=== PATIENT | female | born 1945 ===

== ENCOUNTER 2022-07-05 08:39 | Inpatient (IN) | payer MEDICARE ==
[~2022-07-05] VITALS: Ht 170.2 cm; Wt 109.3 kg
[2022-07-05 11:30] VITALS: BP 185/83
[2022-07-05] MEDS: ONDANSETRON 4 MG/2 ML (SDV) Z0FRAN IVP PRN ×3 (11:46→22:18)
--- NOTE | 2022-07-05 11:56 | History & Physical-Hospitalist ---
History of Present Illness HPI/Chief Complaint Patient is a 76-year-old female with past medical history of hypertension and partial Colectomy who presented to outside emergency department due to abdominal pain. She states her symptoms started about a week ago but got worse over the past couple of days. She complains of nausea and vomiting. She complains of pain throughout her entire abdomen but was worse in transfer in the lower abdomen. CT was done at outside facility which showed dilated bowel concerning for bowel obstruction. An NG tube was placed and there and she was transferred here. Source: patient Date Seen 07/05/22 Time Seen by a Provider: 11:00 Attending Physician PCP Admitting Physician: Laurie Wilcox MD Attending Physician: Laurie Wilcox MD Referring Physician Date of Admission Jul 05, 2022 at 11:16 Home Medications & Allergies Home Medications Reviewed patient Home Medication Reconciliation performed by pharmacy medication reconciliations energy and conservation technician and/or nursing. Patients Allergies have been reviewed. Allergies Allergies Coded Allergies No Known Drug Allergies (Unverified07/05/22) Past Cwgzeyz-Hokuyj-Ufpbvb Hx Patient Social History Tobacco Use?: No Use of E-Cig and/or Vaping dev: No Substance use?: No Alcohol Use?: No Pt feels they are or have been: No Current Status Advance Directives: No Communicates: Verbally Primary Language: Colombian Preferred Spoken Language: Colombian Is interpretation needed?: No Implanted or Applied Medical D: None Past Medical History Surgeries: Abdominal Hypertension Family Medical History Reviewed Nursing Family Hx Review of Systems Constitutional: see HPI Physical Exam Physical Exam Vital Signs Vital Signs - First Documented 07/05/22 11:30 Temp 36.4 Pulse 72 Resp 20 B/P (MAP) 185/83 (117) Pulse Ox 95 O2 Delivery Room Air Capillary Refill : Height, Weight, BMI Height: '" Weight: lbs. oz. kg; 35.29 BMI Method: General Appearance: No Apparent Distress, WD/WN, Obese HEENT: Other (NGT in place) Respiratory: Lungs Clear, No Accessory Muscle Use, No Respiratory Distress Cardiovascular: Regular Rate, Rhythm, No Murmur Gastrointestinal: Soft, Abnormal Bowel Sounds (quiet), Tenderness (mild and diffuse) Extremity: No Calf Tenderness, No Pedal Edema Neurologic/Psychiatric: Alert, Oriented x3, Normal Mood/Affect Results Results/Procedures Labs Patient resulted labs reviewed. Imaging: Reviewed Imaging Report Assessment/Plan Admission Diagnosis SBO Admission Status: Inpatient Order (span 2 midnights) Reason for Inpatient Admission: see below Assessment and Plan SBO Outside hospital shows SBO on CT with transition point NGT in place Fentanyl for pain Zofran for nausea Surgery consulted HTN BP elevated but in pain from transport IV metoprolol added to replace her oral metoprolol at home Telemetry added Obesity, BMI 35 On phentermine at home per report DVT ppx: Lovenox Diagnosis/Problems Diagnosis/Problems (1) Essential (primary) hypertension (2) Obesity (3) Small bowel obstruction LAURIE WILCOX MD Jul 05, 2022 11:56
--- NOTE | 2022-07-05 11:58 | Consultation - Surgery ---
RACHNA GUZMAN 07/05/22 1158: History of Present Illness History of Present Illness Patient Consulted On(ann/time) 07/05/22 11:48 Date Seen by Provider: Jul 05, 2022 Time Seen by Provider: 11:24 Reason for Visit: Small Bowel Obstruction History of Present Illness Consulted requested by Dr. Wilcox 76yo F with h/o exploratory lap with R colon resection and cholelithiasis was admitted for SBO after presenting to the ED with c/o nausea, decreased appetite, and diffuse abd pain that started 2 days ago. Pt also reports associated "low grade fevers" of 99 in ED and chills that started around this time. Pt states that on 07/03, she started to experience 9/10, constant, epigastric pain and nausea. Pt states that yesterday evening the pain started to become more diffuse. Pt reports that last night she started to experience a "fluttering" heart beat that prompted her to come to the ED. ED performed a CT w/IV contrast and findings were suspicious for SBO. NGT was placed in ED and pt was transferred to [facility]. Pt states that pain is similar to when her bowel was "strangulated" and required resection. Pt also notes that she was recently di agnosed with cholelithiasis and had an abd US and bloodwork done on 06/[address] Castillo. Pt's last BM was either Saturday or Saturday and states that it was small and nonbloody. Pt states that she has not had a BM or passed flatus since Saturday or Saturday. In room, pt is resting in bed with NGT in place. Pt is still experiencing nausea but denies any vomiting. Pt does retch during encounter prior to NGT being hooked to suction. Pt states that her abd pain has decreased since onset and states that it is now just "uncomfortable". Pt notes exacerbation of pain with ambulation. Pt denies vomiting, CP, SOB, current fluttering heartbeat, dysruia, hematuria, or bloating. Allergies and Home Medications Allergies Coded Allergies: No Known Drug Allergies (Unverified , 07/05/22) Patient Home Medication List Home Medication List Reviewed: Yes Acetylcarnitine HCl/Alip Acid (Acetyl k-Oqoyxselo-Cxmqrp Acid) 400 Mg-200 Mg Capsule, 1 EACH PO DAILY, (Reported) Entered as Reported by: RADHA BARNES on 07/05/221524 Last Action: Reviewed Ascorbic Acid (Vitamin C) 500 Mg Capsule, 500 MG PO DAILY, (Reported) Entered as Reported by: RADHA BARNES on 07/05/221524 Last Action: Reviewed Bilberry (Bilberry) 100 Mg Capsule, 100 MG PO DAILY, (Reported) Entered as Reported by: RADHA BARNES on 07/05/221524 Last Action: Reviewed Cholecalciferol (Vitamin D3) (Vitamin D3) 50 Mcg (2000 Unit) Tablet, 50 MCG PO DAILY, (Reported) Entered as Reported by: RADHA BARNES on 07/05/221524 Last Action: Reviewed Chromium Amino Acid Chelate (Chromium) 400 Mcg Tablet, 400 MCG PO DAILY, (Reported) Entered as Reported by: RADHA BARNES on 07/05/221524 Last Action: Reviewed Cyclobenzaprine HCl (Cyclobenzaprine HCl) 10 Mg Tablet, 10 MG PO TID PRN for MUSCLE SPASMS, (Reported) Entered as Reported by: RADHA BARNES on 07/05/221524 Last Action: Reviewed Lutein (Lutein) 20 Mg Tablet, 20 MG PO DAILY, (Reported) Entered as Reported by: RADHA BARNES on 07/05/221524 Last Action: Reviewed Metoprolol Succinate (Metoprolol Succinate) 100 Mg Tab.er.24h, 100 MG PO DAILY, (Reported) Entered as Reported by: RADHA BARNES on 07/05/221524 Last Action: Reviewed Phentermine HCl (Phentermine HCl) 37.5 Mg Tablet, 37.5 MG PO DAILY, (Reported) Entered as Reported by: RADHA BARNES on 07/05/221524 Last Action: Reviewed Propylene Glycol/Peg 400 (Systane 0.3-0.4% Eye Drops) 0.3 %-0.4 % Drops, 2 DROPS OU UD PRN for DRY EYES, (Reported) Entered as Reported by: RADHA BARNES on 07/05/221524 Last Action: Reviewed Tizanidine HCl (Tizanidine HCl) 4 Mg Tablet, 4 MG PO BID PRN for MUSCLE CRAMPS, (Reported) Entered as Reported by: RADHA BARNES on 3/9/23 1525 Last Action: Reviewed Torsemide (Torsemide) 20 Mg Tablet, 20 MG PO DAILY, (Reported) Entered as Reported by: RADHA BARNES on 07/05/221524 Last Action: Reviewed Ubidecarenone (Coq-10) 100 Mg Capsule, 100 MG PO DAILY, (Reported) Entered as Reported by: RADHA BARNES on 07/05/221524 Last Action: Reviewed Zinc Sulfate (Zinc) 50 Mg Zinc (220 Mg) Tablet, 50 MG PO DAILY, (Reported) Entered as Reported by: RADHA BARNES on 07/05/221524 Last Action: Reviewed Past Tdtmsyc-Jmpdkt-Vhzqms Hx Patient Social History Smoking Status: Never a Smoker Alcohol Use?: No Have you traveled recently?: No Surgeries History of Surgeries: Yes Surgeries: Abdominal (exploratory lap with R colon resection (including appendix)), Orthopedic (back surgery) Respiratory History of Respiratory Disorde: No Cardiovascular History of Cardiac Disorders: Yes Cardiac Disorders: Hypertension Neurological History of Neurological Disord: No Genitourinary History of Genitourinary Disor: No Gastrointestinal History of Gastrointestinal Di: Yes Gastrointestinal Disorders: Gall Bladder Disease Musculoskeletal History of Musculoskeletal Dis: Yes Musculoskeletal Disorders: Arthritis (back) Endocrine History of Endocrine Disorders: No (does state that she is being worked up for hyperparathyroidism) HEENT History of HEENT Disorders: Yes (retinal detachment) Cancer History of Cancer: No Psychosocial History of Psychiatric Problem: No Integumentary History of Skin or Integumenta: No Family Medical History Significant Family History: Cancer (father: lung-occupational), Hypertension (mother) Review of Systems-General Constitutional: chills; No fever EENTM: No eye pain, No tearing Respiratory: cough (started 1 week ago, nonproductive); No short of breath Cardiovascular: No chest pain, No palpitations Gastrointestinal: abdominal pain (diffuse, worse in RLQ and periumbilical region), loss of appetite, nausea; No vomiting Genitourinary: No dysuria, No hematuria Musculoskeletal: back pain (chronic); No muscle cramps Skin: No change in color, No change in hair/nails Psychiatric/Neurological: Denies Anxiety, Denies Depressed All Other Systems Reviewed Negative Unless Noted: Yes (Negative excepted noted.) Physical Exam-General Problems Physical Exam Vital Signs Vital Signs - First Documented 07/05/22 11:30 Temp 36.4 Pulse 72 Resp 20 B/P (MAP) 185/83 (117) Pulse Ox 95 O2 Delivery Room Air Capillary Refill : General Appearance: WD/WN, no apparent distress, obese HEENT: PERRL/EOMI Neck: non-tender, supple Respiratory: lungs clear, normal breath sounds, no respiratory distress, no accessory muscle use Cardiovascular: regular rate, rhythm, no JVD, systolic murmur Gastrointestinal: abnormal bowel sounds (hypoactive), tenderness (diffuse, wor se in RLQ, RUQ, and periumbilical region), other (large vertical midline surgical scar) Extremities: no pedal edema, no calf tenderness Neurologic/Psychiatric: alert, normal mood/affect, oriented x 3 Skin: normal color, warm/dry Lymphatic: no adenopathy Assessment/Plan Assessment/Plan Assessment/Plan SBO Abd pain nausea h/o exploratory lap with colon resection keep NGT in place with suction IVF NPO anti-emetics prn pain medication prn order CT abd/pelvis with oral contrast if pt can tolerate or KUB DAVID WALL DO 07/05/22 2218: History of Present Illness History of Present Illness History of Present Illness Patient is a 76 year old female transferred from [facility] in [place]. Began having diffuse abdominal pain 2 days ago. Rated at worse a 9/10. States ambulation makes worse. Nothing really makes better that she knows. Has history of right colon resection. Having nausea no emesis. Ct scan demonstrating dilated small bowel with transition point in pelvis from outside facility imaging. Patient has NG tube placed and is on LIWS. Allergies and Home Medications Allergies Coded Allergies: No Known Drug Allergies (Unverified , 07/05/22) Patient Home Medication List Home Medication List Reviewed: Yes Acetylcarnitine HCl/Alip Acid (Acetyl i-Ikziypsll-Fxdhgs Acid) 400 Mg-200 Mg Capsule, 1 EACH PO DAILY, (Reported) Entered as Reported by: RADHA BARNES on 07/05/221524 Last Action: Reviewed Ascorbic Acid (Vitamin C) 500 Mg Capsule, 500 MG PO DAILY, (Reported) Entered as Reported by: RADHA BARNES on 07/05/221524 Last Action: Reviewed Bilberry (Bilberry) 100 Mg Capsule, 100 MG PO DAILY, (Reported) Entered as Reported by: RADHA BARNES on 07/05/221524 Last Action: Reviewed Cholecalciferol (Vitamin D3) (Vitamin D3) 50 Mcg (2000 Unit) Tablet, 50 MCG PO DAILY, (Reported) Entered as Reported by: RADHA BARNES on 07/05/221524 Last Action: Reviewed Chromium Amino Acid Chelate (Chromium) 400 Mcg Tablet, 400 MCG PO DAILY, (Reported) Entered as Reported by: RADHA BARNES on 07/05/221524 Last Action: Reviewed Cyclobenzaprine HCl (Cyclobenzaprine HCl) 10 Mg Tablet, 10 MG PO TID PRN for MUSCLE SPASMS, (Reported) Entered as Reported by: RADHA BARNES on 07/05/221524 Last Action: Reviewed Lutein (Lutein) 20 Mg Tablet, 20 MG PO DAILY, (Reported) Entered as Reported by: RADHA BARNES on 07/05/221524 Last Action: Reviewed Metoprolol Succinate (Metoprolol Succinate) 100 Mg Tab.er.24h, 100 MG PO DAILY, (Reported) Entered as Reported by: RADHA BARNES on 07/05/221524 Last Action: Reviewed Phentermine HCl (Phentermine HCl) 37.5 Mg Tablet, 37.5 MG PO DAILY, (Reported) Entered as Reported by: RADHA BARNES on 07/05/221524 Last Action: Reviewed Propylene Glycol/Peg 400 (Systane 0.3-0.4% Eye Drops) 0.3 %-0.4 % Drops, 2 DROPS OU UD PRN for DRY EYES, (Reported) Entered as Reported by: RADHA BARNES on 07/05/221524 Last Action: Reviewed Tizanidine HCl (Tizanidine HCl) 4 Mg Tablet, 4 MG PO BID PRN for MUSCLE CRAMPS, (Reported) Entered as Reported by: RADHA BARNES on 07/05/221524 Last Action: Reviewed Torsemide (Torsemide) 20 Mg Tablet, 20 MG PO DAILY, (Reported) Entered as Reported by: RADHA BARNES on 07/05/221524 Last Action: Reviewed Ubidecarenone (Coq-10) 100 Mg Capsule, 100 MG PO DAILY, (Reported) Entered as Reported by: RADHA BARNES on 07/05/221524 Last Action: Reviewed Zinc Sulfate (Zinc) 50 Mg Zinc (220 Mg) Tablet, 50 MG PO DAILY, (Reported) Entered as Reported by: RADHA BARNES on 07/05/22 1525 Last Action: Reviewed Past Tnljenj-Dwpkke-Cmnwcc Hx Patient Social History Smoking Status: Never a Smoker Surgeries History of Surgeries: Yes Surgeries: Abdominal (exploratory lap with R colon resection (including appendix)), Orthopedic (back surgery) Respiratory History of Respiratory Disorde: No Cardiovascular History of Cardiac Disorders: Yes Cardiac Disorders: Hypertension Neurological History of Neurological Disord: No Genitourinary History of Genitourinary Disor: No Gastrointestinal History of Gastrointestinal Di: Yes Gastrointestinal Disorders: Gall Bladder Disease Musculoskeletal History of Musculoskeletal Dis: Yes Musculoskeletal Disorders: Arthritis (back) Endocrine History of Endocrine Disorders: No (does state that she is being worked up for hyperparathyroidism) HEENT History of HEENT Disorders: Yes (retinal detachment) Cancer History of Cancer: No Psychosocial History of Psychiatric Problem: No Integumentary History of Skin or Integumenta: No Reviewed Nursing Assessment Reviewed/Agree w Nursing PMH: Yes Family Medical History Significant Family History: Cancer (father: lung-occupational), Hypertension (mother) Review of Systems-General Constitutional: chills; No fever EENTM: No eye pain, No tearing Respiratory: cough (started 1 week ago, nonproductive); No short of breath Cardiovascular: No palpitations Gastrointestinal: abdominal pain (diffuse, worse in RLQ and periumbilical region), loss of appetite, nausea; No vomiting Genitourinary: No dysuria, No hematuria Musculoskeletal: back pain (chronic); No muscle cramps Skin: No change in color, No change in hair/nails Psychiatric/Neurological: Denies Anxiety, Denies Depressed All Other Systems Reviewed Negative Unless Noted: Yes (Negative excepted noted.) Physical Exam-General Problems Physical Exam General Appearance: WD/WN, no apparent distress, obese, other (ng tube) HEENT: PERRL/EOMI, normal ENT inspection Neck: non-tender, supple Respiratory: chest non-tender, no respiratory distress, no accessory muscle use Cardiovascular: regular rate, rhythm, no JVD Gastrointestinal: soft, tenderness (diffuse, worse in RLQ, RUQ, and periumbilical region), other (large vertical midline surgical scar) Rectal: deferred Back: normal inspection, no CVA tenderness Extremities: normal range of motion, non-tender Neurologic/Psychiatric: alert, normal mood/affect, oriented x 3 Skin: normal color, warm/dry Lymphatic: no adenopathy Assessment/Plan Assessment/Plan Assessment/Plan SBO Abd pain -diffuse nausea h/o exploratory lap with colon resection (right colon) keep NG Tube in place with low intermittent wall suction IVF NPO anti-emetics prn pain medication prn small bowel follow through Supervisory-Addendum Brief Verification & Attestation Participated in pt care: history, MDM, physical Personally performed: exam, history, MDM, supervision of care Care discussed with: Medical Student Procedures: n/a Results interpretation: Verified all documentation Verification and Attestation of Medical Student E/M Service A medical student performed and documented this service in my presence. I reviewed and verified all information documented by the medical student and made modifications to such information, when appropriate. I personally performed the physical exam and medical decision making. David Wall, Jul 05, 2022,16:00 RACHNA GUZMAN Jul 05, 2022 11:58 DAVID WALL DO Jul 05, 2022 15:58
[2022-07-05] MEDS ORDERED: CATHETER FLUSH 10 ML SYR IV PRN (13:30)
[2022-07-05] MEDS: meTOprolol 5 MG/5 ML (LOPRESSOR) VIAL IV PRN ×2 (13:42→23:34)
[2022-07-05] MEDS: CATHETER FLUSH 10 ML SYR IV SCH ×2 (13:42→22:18)
[2022-07-05 13:43] VITALS: BP 194/96
--- NOTE | 2022-07-05 14:47 | Physical Therapy Evaluation ---
PT Evaluation-General Medical Diagnosis Admission Date Jul 05, 2022 at 11:16 Medical Diagnosis: SBP, Epigastric pain, nausea Onset Date: Jul 03, 2022 Therapy Diagnosis Therapy Diagnosis: Gait deficit, strength deficit Precautions Precautions/Isolations: Fall Prevention Weight Bear Status Right Lower Extremity: Right Full Weight Bearing Left Lower Extremity: Left Full Weight Bearing Referral Physician: Dr. Wilcox Reason for Referral: Evaluation/Treatment Medical History Reviewed History: Yes Social History Home: [facility] Current Living Status: Spouse Entry Into Home: Stairs With Railing PT Steps Into Home: 4 PT Steps Inside Home: 5 Prior Prior Level of Function SCALE: Activities may be completed with or without assistive devices. 1-Skybscpqoe-vxedbbt completes the activity by him/herself with no assistance from a helper. 5-Set-up or Clean-up Assistance-helper sets up or cleans up; patient completes activity. [place] assists only prior to or following the activity. 4-Supervision or Touching Assistance-helper provides verbal cues and/or touching/steadying and/or contact guard assistance as patient completes activity. Assistance may be provided throughout the activity or intermittently. 3-Partial/Moderate Assistance-helper does LESS THAN HALF the effort. [place] lifts, holds or supports trunk or limbs, but provides less than half the effort. 2-Substantial/Maximal Assistance-helper does MORE THAN HALF the effort. [place] lifts or holds trunk or limbs and provides more than half the effort. 9-Rsaklmuuo-bdkfmg does ALL the effort. Patient does none of the effort to complete the activity. Or, the assistance of 2 or more helpers is required for the patient to complete the activity. If activity was not attempted, code reason: 7-Patient Refused. 9-Not Applicable-not attempted and the patient did not perform the activity before the current illness, exacerbation or injury. 10-Not Attempted due to Environmental Limitations-(lack of equipment, weather restraints, etc.). 88-Not Attempted due to Medical Conditions or Safety Concerns. Bed Mobility: 6 Transfers (B,C,W/C): 6 Gait: 6 Stairs: 6 Indoor Mobility (Ambulation): Independent Stairs: Independent Prior Devices Use: Other-see list below Prior Device Use: Walking stick PT Evaluation-Current Subjective Patient lying in bed with HOB nearly fully elevated. Patient agreeable to treatment. Patient rates abdominal pain at 3/10 currently. Objective Patient Orientation: Person, Place, Time, Situation Attachments: NG Tube, IV ROM/Strength ROM Lower Extremities WFLs all planes bilaterally Strength Lower Extremities 4/5 all planes bilaterally Sensory Vision: Functional Hearing: Functional Sensation Right Lower Extremit: Intact Sensation Left Lower Extremity: Intact Transfers Roll Left to Right (QC): 4 Sit to Lying (QC): 4 Lying to Sitting/Side of Bed(Q: 4 Sit to Stand (QC): 4 Chair/Dvc-mp-Nezwk Xfer(QC): 4 Toilet Transfer (QC): 4 Gait Does the Patient Walk?: Yes Mode of Locomotion: Walk Anticipated Mode of Locomotion: Walk Walk 10 feet (QC): 4 Walk 50 ft with 2 Turns(QC): 4 Distance: 120 feet Gait Assistive Device: FWW Balance Sitting Static: Good Sitting Dynamic: Good Standing Static: Fair Standing Dynamic: Fair Assessment/Needs Patient tolerated treatment well, however fatigues quickly. Patient performs all observed bed mobility and transfers with SBA. Patient ambulates 120 feet with FWW, with SBA and verbal cues for safety, progression, posture and conservation of energy. Patient in bed post treatment with all needs met, nursing notified, call light in reach. Rehab Potential: Good Equipment Needs FWW PT Fabric Stretcher Goals Alf Goals PT Alf Goals Time Frame: Jul 21, 2022 Roll Left & Right (QC): 6 Sit to Lying (QC): 6 Lying-Sitting on Side/Bed(QC): 6 Sit to Stand (QC): 6 Chair/Kiy-xh-Dcojk Xfer(QC): 6 Toilet Transfer (QC): 6 Car Transfer (QC): 6 Does the Patient Walk: Yes Walk 10 feet (QC): 6 Walk 50ft with 2 Turns (QC): 6 Walk 150 ft (QC): 6 1 Step (curb) (QC): 4 4 Steps (QC): 4 PT Plan Problem List Problem List: Activity Tolerance, Functional Strength, Safety, Balance, Gait, Transfer, Bed Mobility, ROM Treatment/Plan Treatment Plan: Continue Plan of Care Treatment Plan: Bed Mobility, Education, Functional Activity Naomi, Functional Strength, Group Therapy, Gait, Safety, Therapeutic Exercise, Transfers Treatment Duration: Jul 27, 2022 Frequency: 6 times per week Estimated Hrs Per Day: .25 hour per day Patient and/or Family Agrees t: Yes Safety Risks/Education Patient Education: Gait Training, Transfer Techniques Teaching Recipient: Patient Teaching Methods: Demonstration, Discussion Response to Teaching: Verbalize Understanding, Return Demonstration Time Time In: 1417 Time Out: 1442 DATE: Jul 05, 2022 Total Billed Treatment Time: 25 Total Billed Treatment Visit, Ashli SINGH JOHN A PT Jul 05, 2022 14:47
[2022-07-05] MEDS ORDERED: TIZA-186 PO (15:25)
[2022-07-05] MEDS ORDERED: CHRO400T10 PO (15:25)
[2022-07-05] MEDS ORDERED: PHEN37.58 PO (15:25)
[2022-07-05] MEDS ORDERED: UBID100C17 PO (15:25)
[2022-07-05] MEDS ORDERED: CYCL10TA25 PO (15:25)
[2022-07-05] MEDS ORDERED: ZINC220T3 PO (15:25)
[2022-07-05] MEDS ORDERED: LUTE20TA PO (15:25)
[2022-07-05] MEDS ORDERED: BILB100C PO (15:25)
[2022-07-05] MEDS ORDERED: TORS20TA3 PO (15:25)
[2022-07-05] MEDS ORDERED: PROP15DR OU (15:25)
[2022-07-05] MEDS ORDERED: CHOL200052 PO (15:25)
[2022-07-05] MEDS ORDERED: MTP100TCR PO (15:25)
[2022-07-05] MEDS ORDERED: ASCO500C17 PO (15:25)
[2022-07-05] MEDS ORDERED: ACET1CAP PO (15:25)
[2022-07-05] MEDS ORDERED: DIATRIZOATE MEGLUM/SODIUM 37% 120 ML (GASTROGRAFIN) NG ONE (15:45)
[2022-07-05 16:48] VITALS: BP 191/79
[2022-07-05] MEDS: hydrALAZINE (APESOLINE) 20 MG/ML VIAL IV PRN (17:58)
[2022-07-05] MEDS ORDERED: CHLORASEPTIC SPRAY 177 ML LIQUID MC PRN (18:15)
[2022-07-05] MEDS: NS IV 1000 ML 1,000 ML IV SCH (18:48)
[2022-07-05] MEDS: fentaNYL INJ 100 MCG/2 ML AMP IVP PRN (18:51)
[2022-07-05 19:51] VITALS: BP 162/88
[2022-07-05 23:25] VITALS: BP 188/90
[2022-07-06] VITALS (13 sets, daily range): BP systolic 178–204; BP diastolic 84–110
[2022-07-06] MEDS: ONDANSETRON 4 MG/2 ML (SDV) Z0FRAN IVP PRN ×2 (02:22→08:01)
[2022-07-06] MEDS: fentaNYL INJ 100 MCG/2 ML AMP IVP PRN ×4 (02:27→22:42)
[2022-07-06] MEDS: NS IV 1000 ML 1,000 ML IV SCH ×2 (04:24→14:46)
[2022-07-06] MEDS: CATHETER FLUSH 10 ML SYR IV SCH ×3 (05:44→21:13)
[2022-07-06 05:46] LABS: HEMATOCRIT 44 % (35-52); MEAN CORPUSCULAR HEMOGLOBIN 30 pg (25-34); MEAN CORPUSCULAR HGB CONC 34 g/dL (32-36); MEAN CORPUSCULAR VOLUME 88 fL (80-99); MEAN PLATELET VOLUME 10.3 fL (9.0-12.2); PLATELET COUNT 213 10^3/uL (130-400); WHITE BLOOD COUNT 7.7 10^3/uL (4.3-11.0)
[2022-07-06 06:07] LABS: POTASSIUM 3.4 MMOL/L (3.6-5.0)
[2022-07-06 06:08] LABS: CALCIUM 11.4 MG/DL (8.5-10.1)
[2022-07-06 06:12] LABS: CREATININE SERUM 0.86 MG/DL (0.60-1.30)
--- NOTE | 2022-07-06 06:56 | Progress Note - Surgery ---
MEGANRACHNA 07/06/22 0656: Subjective Date Seen by a Provider: Jul 06, 2022 Time Seen by a Provider: 06:40 Subjective/Events-last exam Pt being followed for SBO Pt is laying in bed on side in mild discomfort secondary to nausea. Per nurse, radiology has decided to finish small bowel follow through this morning due to the slow movement of the contrast. 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 Radiologist had high suspicion for o bstruction of the small bowel in the RLQ and discussed these results with Dr. Wall. This morning, pt c/o increased abd distention and nausea. Abd distention has been causing pt to feel more SOB today. Pt also notes that she has been belching more. Pt reports no change in her abd pain, that it is still constant and diffuse but does note adequate control with pain medications. Pt did experience a small amount of flatus last night but denies any this morning. Pt was able to ambulate in somers with PT/OT yesterday without issue. No WBC elevations or fevers overnight. Pt denies any CP, SOB, vomiting, chills, palpitations, and fever. Review of Systems General: No Chills, No Night Sweats HEENT: No Ear Pain, No Dysphasia Pulmonary: Dyspnea (secondary to abd distention); No Cough Cardiovascular: No: Chest Pain, Palpitations Gastrointestinal: Nausea, Abdominal Pain (diffuse); No: Vomiting Genitourinary: No Dysuria, No Hematuria Musculoskeletal: No: leg pain, foot pain Neurological: No: Weakness, Numbness Objective Exam Vital Signs Date Time Temp Pulse Resp B/P (MAP) Pulse Ox O2 Delivery O2 Flow Rate FiO2 07/06/22 03:19 37.3 85 18 180/110 (133) 92 Room Air 07/06/22 01:00 86 07/05/22 23:25 36.3 80 18 188/90 (122) 97 Room Air 07/05/22 20:30 Room Air 07/05/22 19:51 35.4 82 19 162/88 (112) 95 Room Air 07/05/22 19:00 82 07/05/22 16:48 36.3 77 20 191/79 (116) 95 Room Air 07/05/22 15:21 87 07/05/22 13:43 194/96 (128) 07/05/22 12:14 Room Air 07/05/22 11:30 36.4 72 20 185/83 (117) 95 Room Air 07/05/22 08:30 Room Air I & O 07/06/22 07:00 Intake Total 600 ml Output Total 300 ml Balance 300 ml Capillary Refill : General Appearance: No Apparent Distress, WD/WN, Obese HEENT: PERRL/EOMI, Other (NGT in place) Neck: Non Tender, Supple Respiratory: Lungs Clear, Normal Breath Sounds, No Accessory Muscle Use, No Respiratory Distress Cardiovascular: Regular Rate, Rhythm, No Edema, Systolic Murmur Gastrointestinal: soft, distended, tenderness (diffuse), other (large vertical midline surgical scar) Extremity: No Calf Tenderness, No Pedal Edema Neurologic/Psychiatric: Alert, Oriented x3, Normal Mood/Affect Skin: Normal Color, Warm/Dry Lymphatic: No Adenopathy Results Lab Laboratory Tests 07/06/22 05:26: White Blood Count 7.7, Red Blood Count 4.98, Hemoglobin 15.0, Hematocrit 44, Mean Corpuscular Volume 88, Mean Corpuscular Hemoglobin 30, Mean Corpuscular Hemoglobin Concent 34, Red Cell Distribution Width 13.1, Platelet Count 213, Mean Platelet Volume 10.3, Sodium Level 140, Potassium Level 3.4L, Chloride Level 105, Carbon Dioxide Level 24, Anion Gap 11, Blood Urea Nitrogen 17, Creatinine 0.86, Estimat Glomerular Filtration Rate 71, BUN/Creatinine Ratio 20, Glucose Level 125H, Calcium Level 11.4H Radiology Date of Exam:07/05/22 SMALL BOWEL STUDY ONLY Small bowel exam INDICATION: Small bowel obstruction. There are no prior small bowel examinations available for comparison. The CT abdomen/pelvis exam performed, at [facility] earlier today at 1400 indicated a small bowel obstruction. The point of transition was felt to be in the right lower quadrant. Contrast was introduced to the stomach via the patient's newly inserted NG tube. On the 1 hour image, there is evidence of contrast within the stomach and in the proximal small bowel. However the small bowel does not appear to cross the midline and there is no normal ligament of Treitz identified. I suspect that there is some degree of malrotation of the small bowel. Multiple images were obtained over a roughly 18 hour period. There was never any progression of the contrast beyond the suspected point of obstruction of the right lower quadrant. The final images show that there is still a considerable amount of contrast within the stomach itself. IMPRESSION: 1. 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 I do suspect that there is obstruction of the small bowel in the right lower quadrant. This would correspond to the finding of the CT exam. 2. These results were discussed with Dr. David Wall. Dictated on workstation # [id number] Dict: 07/06/22 1136 Trans: 07/06/22 1208 [facility] [id number] Interpreted by: EVELYNE LOVE MD Electronically signed by: Assessment/Plan Assessment/Plan Assessment/Plan SBO Abd pain -diffuse nausea h/o exploratory lap with colon resection (right colon) Exploratory Laparotomy and all other indicated procedures discussed with pt at bedside. Pt agrees to proceed with surgery. Surgery planned for later today keep NG Tube in place with LIWS IVF NPO anti-emetics prn pain medication prn DAVID WALL DO 07/06/22 1524: Subjective Subjective/Events-last exam Patient feeling worse today. More nausea. Did small bowel follow through and showing findings suggestive of malrotation of small bowel and likely obstruction of small bowel in right lower quadrant. Had one time flatus last night, none since. No bowel function. More distended in abdomen causing slight shortness of breath. Denies fever sweats chills or chest pain. Objective Exam General Appearance: No Apparent Distress, WD/WN HEENT: PERRL/EOMI, Normal ENT Inspection Neck: Non Tender, Supple Respiratory: Chest Non Tender, No Accessory Muscle Use, No Respiratory Distress Cardiovascular: Regular Rate, Rhythm Gastrointestinal: soft, distended, tenderness (diffuse), other (large vertical midline surgical scar) Extremity: No Calf Tenderness Neurologic/Psychiatric: Alert, Oriented x3, Normal Mood/Affect Skin: Normal Color, Warm/Dry Lymphatic: No Adenopathy Assessment/Plan Assessment/Plan Assessment/Plan SBO Abd pain -diffuse nausea h/o exploratory lap with colon resection (right colon) Exploratory Laparotomy and all other indicated procedures discussed with pt at bedside risks and benefits. Pt agrees to proceed with surgery. Surgery planned for today keep NG Tube in place with LIWS IVF NPO anti-emetics prn pain medication prn Ancef 2 grams IV preop Supervisory-Addendum Brief Verification & Attestation Participated in pt care: history, MDM, physical Personally performed: exam, history, MDM, supervision of care Care discussed with: Medical Student Procedures: n/a Results interpretation: Verified all documentation Verification and Attestation of Medical Student E/M Service A medical student performed and documented this service in my presence. I reviewed and verified all information documented by the medical student and made modifications to such information, when appropriate. I personally performed the physical exam and medical decision making. David Wall, Jul 06, 2022,15:23 RACHNA GUZMAN Jul 06, 2022 06:56 DAVID WALL DO Jul 06, 2022 15:24
[2022-07-06] MEDS: PROMETHAZINE INJ 25 MG/ML (PHENERGAN) AMP IVP PRN (10:59)
--- NOTE | 2022-07-06 11:26 | Progress Note - Hospitalist ---
Subjective HPI/CC On Admission Date Seen by Provider: Jul 06, 2022 Patient is a 76-year-old female with past medical history of hypertension and partial Colectomy who presented to outside emergency department due to abdominal pain. She states her symptoms started about a week ago but got worse over the past couple of days. She complains of nausea and vomiting. She complains of pain throughout her entire abdomen but was worse in transfer in the lower abdomen. CT was done at outside facility which showed dilated bowel concerning for bowel obstruction. An NG tube was placed and there and she was transferred here. Subjective/Events-last exam Pt reports persistent abd pain. Feels distended and nauseated. Discussed the findings from CT and small bowel follow through with her and likelihood of her needing surgery. She is in agreement with this plan. Objective Exam Vital Signs Vital Signs Date Time Temp Pulse Resp B/P (MAP) Pulse Ox O2 Delivery O2 Flow Rate FiO2 07/06/22 08:06 Room Air 07/06/22 07:59 37.0 87 18 195/93 (127) 96 Capillary Refill : General Appearance: Other (appears uncomfortable) HEENT: Other (NGT) Respiratory: Lungs Clear, No Respiratory Distress Cardiovascular: Regular Rate, Rhythm, No Murmur Gastrointestinal: Abnormal Bowel Sounds (absent), Distended; No Guarding; Tenderness (mild and diffuse) Neurologic/Psychiatric: Alert, Oriented x3 Results/Procedures Lab Laboratory Tests 07/06/22 05:26 Patient resulted labs reviewed. Imaging: Reviewed Imaging Report Assessment/Plan Assessment and Plan Assess & Plan/Chief Complaint SBO Dr Hart reviewed imaging with radioogy and possible band or malrotation noted Will likely need operative repair NGT in place Fentanyl for pain, pain uncontrolled will adjust dose Zofran for nausea, add phenergan Surgery consulted HTN BP remains elevated IV metoprolol and IV hyrdralazine Telemetry added Obesity, BMI 35 On phentermine at home per report DVT ppx: SCDs as going to surgery Diagnosis/Problems Diagnosis/Problems (1) Essential (primary) hypertension (2) Obesity (3) Small bowel obstruction LAURIE SALCIDO MD Jul 06, 2022 11:26
--- NOTE | 2022-07-06 11:34 | Physical Therapy Progress Note ---
Therapy Progress Note Patient to have surgery on this date per RN. No PT rendered on this date. Will resume tomorrow JAJA Mathew PT Jul 06, 2022 11:34
--- NOTE | 2022-07-06 12:09 | Diagnostic Imaging Report ---
Small bowel exam INDICATION: Small bowel obstruction. There are no prior small bowel examinations available for comparison. The CT abdomen/pelvis exam performed, at [facility] earlier today at 1400 indicated a small bowel obstruction. The point of transition was felt to be in the right lower quadrant. Contrast was introduced to the stomach via the patient's newly inserted NG tube. Multiple images of the abdomen were taken over an 18 hour period. On the 1 hour image, there is evidence of contrast within the stomach and in the proximal small bowel. However the small bowel does not appear to cross the midline and there is no normal ligament of Treitz identified. I suspect that there is some degree of malrotation of the small bowel. There was never any progression of the contrast beyond the suspected point of obstruction of the right lower quadrant. However the small bowel where visualized does not seem to be abnormally dilated. The final images show that there is still a considerable amount of contrast within the stomach itself. IMPRESSION: 1. 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 I do suspect that there is obstruction of the small bowel in the right lower quadrant. This would correspond to the findings of the CT exam. 2. These results were discussed with Dr. Garth Hart. Dictated by: Dictated on workstation # [id number]
[2022-07-06] MEDS ORDERED: ROCURONIUM 50 MG/5 ML (ZEMURON) VIAL IV ONE ×2 (13:10→17:15)
[2022-07-06] MEDS ORDERED: ONDANSETRON 4 MG/2 ML (SDV) Z0FRAN ONE (13:10)
[2022-07-06] MEDS ORDERED: SUCCINYLCHOLINE INJ 20 MG/1 ML 10 ML VIAL ONE (13:10)
[2022-07-06] MEDS ORDERED: proPOfol 200 MG/20 ML (DIPRIVAN) VIAL IV ONE (13:10)
[2022-07-06] MEDS ORDERED: LIDOCAINE PF 2% 5 ML (XYLOCAINE) VIAL ONE (13:10)
[2022-07-06] MEDS ORDERED: fentaNYL INJ 100 MCG/2 ML AMP ONE (13:11)
[2022-07-06] MEDS ORDERED: ceFAZolin INJECTION 2,000 MG in NS (IVPB) 50 ML IV NR (15:30)
[2022-07-06] MEDS: LACTATED RINGERS 1,000 ML IV PRN ×3 (15:58→19:01)
[2022-07-06] MEDS ORDERED: ESMOLOL 100 MG/10 ML (BREVIBLOC) VIAL ONE (16:50)
[2022-07-06] MEDS ORDERED: ROPIVACAINE 5MG/ML 30ML VIAL ONE (17:46)
--- NOTE | 2022-07-06 18:11 | Progress Note-Post Operative ---
Post-Operative Progess Note Surgeon (s)/[employer] Department Head (s) Surgeon DAVID WALL DO [employer] Department Head: Dr. Castillo Pre-Operative Diagnosis small bowel obstruction Post-Operative Diagnosis internal hernia, intrabdominal adhesions Procedure & Operative Findings Date of Procedure 07/06/22 Procedure Performed/Findings exploratory laparotomy, release of internal hernia, lysis of adhesions [id number] Anesthesia Type general Estimated Blood Loss Estimated blood loss (mL): minimal Specimens/Packing Specimens Removed na DAVID WALL DO Jul 06, 2022 18:11
[2022-07-06] MEDS ORDERED: SEVOFLURANE (ULTANE) 15 ML INHAL SOLN ONE (18:14)
[2022-07-06] MEDS ORDERED: LABETALOL HCL 20 MG/4 ML VIAL IV PRN (18:30)
[2022-07-06] MEDS ORDERED: fentaNYL INJ 100 MCG/2 ML AMP IVP ONE (18:30)
[2022-07-06] MEDS ORDERED: MEPERIDINE (DEMEROL) INJ 50 MG/ML IVP ONE (18:30)
[2022-07-06] MEDS ORDERED: PROMETHAZINE INJ 25 MG/ML (PHENERGAN) AMP IVP ONE (18:30)
[2022-07-06] MEDS ORDERED: ONDANSETRON 4 MG/2 ML (SDV) Z0FRAN IVP PRN (18:30)
[2022-07-06] MEDS: ceFAZolin INJECTION 2,000 MG in NS (IVPB) 50 ML IV SCH (22:42)
[2022-07-06] MEDS: meTOprolol 5 MG/5 ML (LOPRESSOR) VIAL IV PRN (23:36)
[2022-07-07] MEDS: NS IV 1000 ML 1,000 ML IV SCH ×3 (00:34→19:20)
[2022-07-07] MEDS: fentaNYL INJ 100 MCG/2 ML AMP IVP PRN ×7 (00:34→19:30)
--- NOTE | 2022-07-07 00:41 | OPERATIVE REPORT ---
DATE OF SERVICE: 07/06/2022 PREOPERATIVE DIAGNOSIS: Small-bowel obstruction. POSTOPERATIVE DIAGNOSIS: Internal hernia and multiple intra-abdominal adhesions causing small-bowel obstruction. PROCEDURE: Exploratory laparotomy with release of internal hernia and lysis of adhesions, one hour and 10 minutes. SURGEON: David Hart DO SCIENCE EDUCATION PROFESSOR: Isiah Castillo DO, assisted in retraction, dissection, and closure. ANESTHESIA: General. ESTIMATED BLOOD LOSS: Minimal. COMPLICATIONS: None. INDICATIONS: The patient is a 76-year-old female who presented with a small-bowel obstruction. She had an NG tube placed. She had CT scan at outside facility, demonstrating a small-bowel obstruction. Small bowel follow through was performed as well, demonstrating findings of possible malrotation, but also noting the distal small-bowel obstruction. The patient was not feeling any better today, actually feeling a little bit worse and some more distended. She was discussed risks and benefits of procedure and wished to proceed. Consent was signed and in chart. DESCRIPTION OF PROCEDURE: The patient was taken to the operating suite. She was prepped and draped in sterile fashion. Surgical pause was performed. Midline incision was made with #15 blade scalpel. Cautery was used to dissect down through subcutaneous tissue to the fascia, which was then scored and opened. Multiple adhesions were encountered. The fascia was then grasped with Kochers and elevated. Metzenbaums were used to start taking down the adhesions. Once initial adhesions encountered were taken down, the small bowel was encountered. It was dilated, and was able to be visualized. There was some fluid around it as well, but it was not purulent. The small bowel was then grasped and multiple adhesions continued had to be taken down to the intraabdominal wall. Then, the small bowel was able to grasp and started to be brought out. Significant adhesions still to the small bowel was then continued to be dissected. Mobilizing the small bowel, continued to be able to run it. Portion of the bowel had a dusky appearance and then also noted to where there was band that was also present that was creating an internal hernia. This was continued to be dissected free and the band was able to be transected. The bowel was continued to be monitored again, noting that it no longer had a dusky appearance and appeared to be viable. The small bowel was then continued to be ran and all the adhesions continued to be cut and the small bowel was continued to be ran until point; another band, which demonstrated distal to this area to be nondilated decompressed bowel. This also distally distal to this area, went into the small bowel to colonic anastomosis. The small bowel was then ran from the ileocolonic anastomosis proximally all the way to the ligament of Treitz. Again noting the appearance of viability of the small bowel. When got to the ligament of Treitz, we then ran the bowel again back towards the anastomosis. There were 3 small serosal tears, which were then repaired with 3-0 Vicryl pop-offs in a [id number] fashion. No other injuries visualized. The abdomen was then washed out with copious amounts of irrigation. The NG tube is in the stomach in good location. The fascia was then closed using 1-0 looped PDS in a running fashion. The wound was then irrigated and the skin was then closed with vijay. The abdomen was then washed and dried and sterile bandages were applied. The patient tolerated the procedure well without any complications. She was taken to recovery room in stable condition. Job ID: [id number] DocumentID: [id number] Dictated Date: 07/06/2022 22:08:17 [employer] Date: 07/07/2022 00:39:00 Dictated By: DAVID HART DO
[2022-07-07 03:42] VITALS: BP 180/87
[2022-07-07] MEDS: CATHETER FLUSH 10 ML SYR IV SCH ×3 (05:56→20:14)
[2022-07-07] MEDS: ceFAZolin INJECTION 2,000 MG in NS (IVPB) 50 ML IV SCH (06:14)
[2022-07-07 06:19] LABS: HEMATOCRIT 44 % (35-52); HEMOGLOBIN 14.7 g/dL (11.5-16.0); MEAN CORPUSCULAR HEMOGLOBIN 30 pg (25-34); MEAN CORPUSCULAR HGB CONC 34 g/dL (32-36); MEAN CORPUSCULAR VOLUME 90 fL (80-99); MEAN PLATELET VOLUME 11.2 fL (9.0-12.2); PLATELET COUNT 186 10^3/uL (130-400)
[2022-07-07 06:33] LABS: POTASSIUM 3.2 MMOL/L (3.6-5.0)
[2022-07-07 06:34] LABS: CALCIUM 10.3 MG/DL (8.5-10.1)
[2022-07-07 06:39] LABS: CREATININE SERUM 0.8 MG/DL (0.60-1.30)
[2022-07-07 06:41] LABS: MAGNESIUM 1.7 MG/DL (1.6-2.4)
[2022-07-07 07:13] VITALS: BP 207/91
--- NOTE | 2022-07-07 08:02 | Anesthesia-General Post-Op ---
General Patient Condition Mental Status/LOC: Same as Preop Cardiovascular: Satisfactory Nausea/Vomiting: Absent Respiratory: Satisfactory Pain: Controlled Complications: Absent Post Op Complications Complications None Follow Up Care/Instructions Patient Instructions None needed. Anesthesia/Patient Condition Patient Condition Patient is doing well, no complaints, stable vital signs, no apparent adverse anesthesia problems. No complications reported per nursing. D/C home per [facility] Criteria: DARSHANA Lara CRNA Jul 07, 2022 08:02
[2022-07-07] MEDS: PROMETHAZINE INJ 25 MG/ML (PHENERGAN) AMP IVP PRN (08:47)
[2022-07-07] MEDS ORDERED: cloNIDine 0.1 MG PATCH (CATAPRES TTS) TDSY TD SCH (09:00)
--- NOTE | 2022-07-07 10:15 | Progress Note - Surgery ---
MILTON CAPONE 07/07/22 1015: Subjective Date Seen by a Provider: Jul 07, 2022 Time Seen by a Provider: 10:07 Subjective/Events-last exam 76 F s/p a ex lap w/ lysis of adhesions secondary to a bowel obstruction POD 1 . Pt states she is quite a bit of pain today rated 7/10 diffusely across the abd omen and described as a dull ache with associated sharp pain on movement. Per nurse, dressing was changed today with minimal erythema and minimal discharge. Denies any flatus or inclination to pass stool. States she has a subjective fever with mild diaphoresis. Claims she feels mildly short of breath because it hurts to much to take a deep breath. Patient spoke with Dr. Wilcox about a abdominal binder today. Stated it provided symptom relief during her recovery of her last colon surgery. Denies any n/v, CP, lightheadedness, or urinary symptoms. Review of Systems General: Night Sweats HEENT: No Head Aches, No Visual Changes Pulmonary: Dyspnea; No Cough Cardiovascular: No: Chest Pain, Palpitations, Lt Headedness Gastrointestinal: Abdominal Pain, Constipation; No: Nausea, Vomiting Genitourinary: No Dysuria, No Frequency Musculoskeletal: No: leg pain, foot pain Neurological: No: Change in speech, Confusion Objective Exam Vital Signs Date Time Temp Pulse Resp B/P (MAP) Pulse Ox O2 Delivery O2 Flow Rate FiO2 07/07/22 07:13 36.4 89 20 207/91 (129) 95 Nasal Cannula 3.00 07/07/22 07:00 90 07/07/22 03:42 36.5 90 18 180/87 (118) 92 Nasal Cannula 3.00 07/07/22 01:00 90 07/06/22 23:22 36.7 89 18 193/93 (126) 95 Nasal Cannula 3.00 07/06/22 19:50 36.7 85 20 182/88 (119) 94 Nasal Cannula 3.00 07/06/22 19:45 Room Air 07/06/22 19:30 Nasal Cannula 3.00 07/06/22 19:20 36.6 18 195/96 (129) 94 Nasal Cannula 3.00 07/06/22 19:15 OxyMask 3.00 07/06/22 19:10 17 188/84 (118) 93 OxyMask 3.00 07/06/22 19:00 17 192/90 (124) 95 OxyMask 3.00 07/06/22 19:00 90 07/06/22 19:00 OxyMask 3.00 07/06/22 18:50 17 200/95 (130) 93 OxyMask 3.00 07/06/22 18:45 OxyMask 4.00 07/06/22 18:40 20 200/93 (128) 95 OxyMask 4.00 07/06/22 18:30 19 204/86 (125) 94 OxyMask 6.00 07/06/22 18:30 OxyMask 6.00 07/06/22 18:17 OxyMask 6.00 07/06/22 18:17 36.2 18 195/84 (121) 94 OxyMask 6.00 07/06/22 15:49 37.7 90 18 180/95 (123) 83 Room Air 07/06/22 12:33 90 07/06/22 11:39 37.2 84 18 178/85 (116) 93 Room Air I & O 07/07/22 07:00 Intake Total 2100 ml Output Total 1380 ml Balance 720 ml Capillary Refill : General Appearance: No Apparent Distress, WD/WN HEENT: PERRL/EOMI, Moist Mucous Membranes Neck: Non Tender; No Lymphadenopathy (L), No Lymphadenopathy (R) Respiratory: Chest Non Tender, No Accessory Muscle Use, No Respiratory Dist ress, Other (pain with deep inhalation ) Cardiovascular: Regular Rate, Rhythm, No Murmur Peripheral Pulses: 3+ Dorsalis Pedis (R), 3+ Left Dors-Pedis (L), 3+ Radial Pulses (R), 3+ Radial Pulses (L) Gastrointestinal: abnormal bowel sounds (hypoactive BS x 4 ), distended, tenderness Extremity: No Calf Tenderness, Pedal Edema (1+ BL ) Neurologic/Psychiatric: Alert, Oriented x3, Normal Mood/Affect Skin: Normal Color, Warm/Dry Lymphatic: Other (no cervical or axially LAD ) Results Lab Laboratory Tests 07/07/22 05:19: White Blood Count 7.0, Red Blood Count 4.86, Hemoglobin 14.7, Hematocrit 44, Mean Corpuscular Volume 90, Mean Corpuscular Hemoglobin 30, Mean Corpuscular Hemoglobin Concent 34, Red Cell Distribution Width 13.2, Platelet Count 186, Mean Platelet Volume 11.2, Sodium Level 142, Potassium Level 3.2L, Chloride Level 107, Carbon Dioxide Level 24, Anion Gap 11, Blood Urea Nitrogen 17, Creatinine 0.80, Estimat Glomerular Filtration Rate 77, BUN/Creatinine Ratio 21, Glucose Level 133H, Calcium Level 10.3H, Magnesium Level 1.7 Assessment/Plan Assessment/Plan Assessment/Plan ex lap w/ lysis of adhesion for a SBO POD 1 Abd pain -diffuse nausea- resolved h/o exploratory lap with colon resection (right colon) hyperglycemia Hypokalemia Hypertensive urgency constipation keep NG Tube in place with LIWS IVF w/ electrolyte supplementation NPO anti-emetics prn increase pain medication to gain proper pain control Start ICS and increase ambulation today continue HTN regimen of clonidine and metoprolol stool softeners PRN ISIAH CASTILLO DO 07/07/22 1319: Subjective Time Seen by a Provider: 13:02 Subjective/Events-last exam Pt seen and examined, states pain is mostly controlled and she wants to drink more. Feels better with abd binder. Review of Systems General: Night Sweats Pulmonary: Dyspnea; No Cough Cardiovascular: No: Chest Pain, Palpitations Gastrointestinal: Abdominal Pain; No: Nausea, Vomiting Genitourinary: Frequency Objective Exam General Appearance: No Apparent Distress, WD/WN HEENT: PERRL/EOMI, Moist Mucous Membranes Respiratory: Chest Non Tender, No Accessory Muscle Use, No Respiratory Distress, Other (pain with deep inhalation ) Cardiovascular: Regular Rate, Rhythm Gastrointestinal: abnormal bowel sounds (hypoactive BS x 4 ), distended, tenderness Extremity: Pedal Edema (1+ BL ) Neurologic/Psychiatric: Alert, Oriented x3 Assessment/Plan Assessment/Plan Assessment/Plan S/P Ex lap w/ lysis of adhesion for SBO POD 1 Abd pain -diffuse nausea- resolved h/o exploratory lap with colon resection (right colon) hyperglycemia Hypokalemia Hypertensive urgency constipation keep NG Tube in place with LIWS IVF w/ electrolyte supplementation NPO anti-emetics prn increase pain medication to gain proper pain control Start ICS and increase ambulation today continue HTN regimen of clonidine and metoprolol stool softeners PRN Supervisory-Addendum Brief Verification & Attestation Participated in pt care: history, MDM, physical Personally performed: exam, history, MDM, supervision of care Care discussed with: Medical Student Procedures: n/a Verification and Attestation of Medical Student E/M Service A medical student performed and documented this service. I then reviewed and verified all information documented by the medical student and made modifications to such information, when appropriate. I personally performed a physical exam, medical decision making and then discussed any differences between the notes and made revisions as necessary to create one note. Isiah Castillo , 07/07/22 , 13:19 MILTON CAPONE Jul 07, 2022 10:15 ISIAH CASTILLO DO Jul 07, 2022 13:19
--- NOTE | 2022-07-07 10:44 | Progress Note - Hospitalist ---
Subjective HPI/CC On Admission Date Seen by Provider: Jul 07, 2022 Patient is a 76-year-old female with past medical history of hypertension and partial Colectomy who presented to outside emergency department due to abdominal pain. She states her symptoms started about a week ago but got worse over the past couple of days. She complains of nausea and vomiting. She complains of pain throughout her entire abdomen but was worse in transfer in the lower abdomen. CT was done at outside facility which showed dilated bowel concerning for bowel obstruction. An NG tube was placed and there and she was transferred here. Subjective/Events-last exam Pt reports persistent abd pain. States fentanyl only lasting about 1 hour. Requests binder as that had helped in the past with her pain. Objective Exam Vital Signs Vital Signs Date Time Temp Pulse Resp B/P (MAP) Pulse Ox O2 Delivery O2 Flow Rate FiO2 07/07/22 07:13 36.4 89 20 207/91 (129) 95 Nasal Cannula 3.00 Capillary Refill : General Appearance: No Apparent Distress Respiratory: Lungs Clear, No Respiratory Distress Cardiovascular: Regular Rate, Rhythm, No Murmur Gastrointestinal: Abnormal Bowel Sounds (absent), Distended; No Guarding, No Rebound; Tenderness (appropriate) Neurologic/Psychiatric: Alert, Oriented x3 Results/Procedures Lab Laboratory Tests 07/07/22 05:19 Patient resulted labs reviewed. Imaging: Reviewed Imaging Report Assessment/Plan Assessment and Plan Assess & Plan/Chief Complaint SBO POD #1 ex lap NGT in place Fentanyl for pain, increase dose and add binder Zofran and phenergan, nausea controlled Surgery consulted NPO HTN BP remains elevated despite IV metoprolol and IV hyrdralazine Add clonidine patch Telemetry added Obesity, BMI 35 On phentermine at home per report DVT ppx: Lovenox when ok with surgery Diagnosis/Problems Diagnosis/Problems (1) Essential (primary) hypertension (2) Obesity (3) Small bowel obstruction LAURIE SALCIDO MD Jul 07, 2022 10:44
[2022-07-07 11:38] VITALS: BP 188/88
--- NOTE | 2022-07-07 12:02 | Physical Therapy Daily Note ---
PT Daily Note-Current Subjective Pt in bed, agreeable to get up with encouragement. Rates abdominal pain 4/10 at rest, 8/10 with standing, 10/10 with bed mobility. Pain Numeric Pain Scale: 10-Worst Possible Pain Location: Anterior Location Body Site: Abdomen Pain Description: Sharp Section J - Health Conditions 1. Rarely or not at all 2. Occasionally 3. Frequently 4. Almost constantly 8. Unable to answer Pain Effect on Sleep: 2 Pain Interference with Therapy: 3 Pain Interference w/Day-to-Day: 3 Mental Status Patient Orientation: Person, Place, Time, Situation Attachments: NG Tube, SCD's, Oxygen, IV Transfers SCALE: Activities may be completed with or without assistive devices. 3-Xttbmnwrve-auggkda completes the activity by him/herself with no assistance from a helper. 5-Set-up or Clean-up Assistance-helper sets up or cleans up; patient completes activity. [place] assists only prior to or following the activity. 4-Supervision or Touching Assistance-helper provides verbal cues and/or touching/steadying and/or contact guard assistance as patient completes activity. Assistance may be provided throughout the activity or intermittently. 3-Partial/Moderate Assistance-helper does LESS THAN HALF the effort. [place] lifts, holds or supports trunk or limbs, but provides less than half the effort. 2-Substantial/Maximal Assistance-helper does MORE THAN HALF the effort. [place] lifts or holds trunk or limbs and provides more than half the effort. 4-Hsohueisy-gplrqk does ALL the effort. Patient does none of the effort to complete the activity. Or, the assistance of 2 or more helpers is required for the patient to complete the activity. If activity was not attempted, code reason: 7-Patient Refused. 9-Not Applicable-not attempted and the patient did not perform the activity before the current illness, exacerbation or injury. 10-Not Attempted due to Environmental Limitations-(lack of equipment, weather restraints, etc.). 88-Not Attempted due to Medical Conditions or Safety Concerns. Roll Left & Right (QC): 3 (Mod A with moving (R) LE and moving upper body to sit) Sit to Lying (QC): 1 (A x 2) Lying to Sitting/Side of Bed(Q: 3 Sit to Stand (QC): 4 (min A x 1) Nursing assisted with abdominal binder placement in standing. Pt demonstrated good balance during this task. Weight Bearing Right Lower Extremity: Right Full Weight Bearing Left Lower Extremity: Left Full Weight Bearing Gait Training Does the Patient Walk?: No and Walking Goal IS indicated Distance: 4 Gait Persons Needed: 1 Gait Assistive Device: FWW Sidestps to HOB with SBA with FWW Wheelchair Training Does the Pt Use a Wheelchair?: No Type of Wheelchair: N/A Treatments Transfer training post-op. Educated on log-rolling for abdominal protection during supine<->sit transfers. Pt in bed with O2 in situ, all needs met post treatment. Assessment Current Status: Fair Progress Pt tolerated fair-well despite high pain rating. PT Housing Property Manager Goals Housing Property Manager Goals PT Housing Property Manager Goals Time Frame: Jul 21, 2022 Roll Left & Right (QC): 6 Sit to Lying (QC): 6 Lying-Sitting on Side/Bed(QC): 6 Sit to Stand (QC): 6 Chair/Wtw-pe-Tjdis Xfer(QC): 6 Toilet Transfer (QC): 6 Car Transfer (QC): 6 Does the Patient Walk: Yes Walk 10 feet (QC): 6 Walk 50ft with 2 Turns (QC): 6 Walk 150 ft (QC): 6 1 Step (curb) (QC): 4 4 Steps (QC): 4 PT Plan Problem List Problem List: Activity Tolerance, Functional Strength, Safety, Balance, Gait, Transfer, Bed Mobility Treatment/Plan Treatment Plan: Continue Plan of Care Treatment Plan: Bed Mobility, Education, Functional Activity Naomi, Functional Strength, Group Therapy, Gait, Safety, Therapeutic Exercise, Transfers Treatment Duration: Jul 27, 2022 Frequency: 6 times per week Estimated Hrs Per Day: .25 hour per day Patient and/or Family Agrees t: Yes Safety Risks/Education Patient Education: Transfer Techniques Teaching Recipient: Patient Teaching Methods: Demonstration, Discussion Response to Teaching: Verbalize Understanding, Reinforcement Needed Time Time In: 1045 Time Out: 1102 DATE: Jul 07, 2022 Total Billed Treatment Time: 17 Total Billed Treatment 1, FA x 17' ALLEN SHARIF DPSamira Jul 07, 2022 12:02
[2022-07-07 16:22] VITALS: BP 149/88
[2022-07-07 19:23] VITALS: BP 186/86
[2022-07-07] MEDS: meTOprolol 5 MG/5 ML (LOPRESSOR) VIAL IV PRN (19:30)
[2022-07-07 23:24] VITALS: BP 138/91
[2022-07-08] VITALS (7 sets, daily range): BP systolic 156–214; BP diastolic 74–104
[2022-07-08] MEDS: fentaNYL INJ 100 MCG/2 ML AMP IVP PRN ×3 (03:46→21:49)
[2022-07-08 05:21] LABS: HEMATOCRIT 40 % (35-52); HEMOGLOBIN 13.1 g/dL (11.5-16.0); MEAN CORPUSCULAR HEMOGLOBIN 30 pg (25-34); MEAN CORPUSCULAR HGB CONC 33 g/dL (32-36); MEAN CORPUSCULAR VOLUME 92 fL (80-99); MEAN PLATELET VOLUME 10.2 fL (9.0-12.2); PLATELET COUNT 156 10^3/uL (130-400); WHITE BLOOD COUNT 3.3 10^3/uL (4.3-11.0)
[2022-07-08 05:27] LABS: POTASSIUM 3.3 MMOL/L (3.6-5.0)
[2022-07-08 05:29] LABS: CALCIUM 10.2 MG/DL (8.5-10.1)
[2022-07-08] MEDS: CATHETER FLUSH 10 ML SYR IV SCH ×3 (05:32→22:49)
[2022-07-08 05:33] LABS: CREATININE SERUM 0.72 MG/DL (0.60-1.30)
[2022-07-08] MEDS: NS IV 1000 ML 1,000 ML IV SCH ×2 (06:57→17:25)
--- NOTE | 2022-07-08 10:27 | Progress Note - Surgery ---
MILTON CAPONE 07/08/22 1027: Subjective Date Seen by a Provider: Jul 08, 2022 Time Seen by a Provider: 10:22 Subjective/Events-last exam 76 F s/p ex lap w/ lysis of adhesions secondary to SBO POD 2 reports she has minor decrease in her pain today compared to yesterday. States it is a diffuse ache across the abdomen rated 6/10 while resting and 8/10 with movement or light touch. Abdominal binder in place and she states is does help with her symptoms. Was able to stand up yesterday w/o issues. Has not passed any flatus or BM. Denies any fever, chills, SOB, CP. Claims she does have sore throat and nasal congestion that started prior to admission. Wound covered by dressing with minimal discharge and no surrounding erythema. States mild improvement with deep inspiration compared to yesterday. Review of Systems General: No Chills, No Night Sweats HEENT: No Head Aches; Sinus Congestion, Sore Throat Pulmonary: No Dyspnea, No Cough Cardiovascular: No: Chest Pain, Palpitations Gastrointestinal: Abdominal Pain; No: Nausea, Vomiting Genitourinary: No Dysuria, No Frequency Musculoskeletal: No: leg pain, foot pain Neurological: No: Change in speech, Confusion Objective Exam Vital Signs Date Time Temp Pulse Resp B/P (MAP) Pulse Ox O2 Delivery O2 Flow Rate FiO2 07/08/22 08:00 Room Air 07/08/22 07:58 36.7 89 20 184/84 (117) 92 Room Air 07/08/22 07:00 87 07/08/22 03:35 36.6 89 18 157/79 (105) 91 Room Air 07/08/22 01:00 94 07/07/22 23:24 36.5 96 18 138/91 (107) 92 Room Air 07/07/22 19:35 Room Air 07/07/22 19:23 36.7 105 18 186/86 (119) 92 Room Air 07/07/22 19:00 111 07/07/22 16:22 38.2 100 18 149/88 (108) 91 Room Air 07/07/22 12:27 93 07/07/22 11:38 37.2 91 20 188/88 (121) 95 Nasal Cannula 3.00 I & O 07/08/22 07:00 Intake Total 2000 ml Output Total 1450 ml Balance 550 ml Capillary Refill : General Appearance: No Apparent Distress, WD/WN HEENT: PERRL/EOMI, Moist Mucous Membranes Neck: Non Tender; No Lymphadenopathy (L), No Lymphadenopathy (R) Respiratory: Chest Non Tender, Lungs Clear, No Accessory Muscle Use, No Respiratory Distress, Other (pain with deep inhalation ) Cardiovascular: Regular Rate, Rhythm, No Murmur, Normal Peripheral Pulses Peripheral Pulses: 3+ Dorsalis Pedis (R), 3+ Left Dors-Pedis (L), 3+ Radial Pulses (R), 3+ Radial Pulses (L) Gastrointestinal: abnormal bowel sounds (hypoactive BS x 4 ), distended, tenderness (to light touch diffusely ) Extremity: Non Tender, Pedal Edema (1+ BL ) Neurologic/Psychiatric: Alert, Oriented x3 Skin: Normal Color, Warm/Dry Results Lab Laboratory Tests 07/08/22 05:10: White Blood Count 3.3L, Red Blood Count 4.35, Hemoglobin 13.1, Hematocrit 40, M mitch Corpuscular Volume 92, Mean Corpuscular Hemoglobin 30, Mean Corpuscular Hemoglobin Concent 33, Red Cell Distribution Width 13.6, Platelet Count 156, Mean Platelet Volume 10.2, Sodium Level 143, Potassium Level 3.3L, Chloride Level 112H, Carbon Dioxide Level 19L, Anion Gap 12, Blood Urea Nitrogen 18, Creatinine 0.72, Estimat Glomerular Filtration Rate 88, BUN/Creatinine Ratio 25, Glucose Level 92, Calcium Level 10.2H Assessment/Plan Assessment/Plan Assessment/Plan S/P Ex lap w/ lysis of adhesion for SBO POD 2 Abd pain -diffuse nausea- resolved h/o exploratory lap with colon resection (right colon) hyperglycemia- resolved Hypokalemia Hypertensive urgency-improving constipation URI keep NG Tube in place with LIWS IVF w/ electrolyte supplementation NPO anti-emetics prn continue proper pain control continue ICS and increase ambulation today to walks around unit continue to monitor BP and continue current HTN regimen stool softeners PRN continue use of chloroseptic spray ISIAH CASTILLO DO 07/08/22 1150: Subjective Time Seen by a Provider: 11:31 Subjective/Events-last exam Pt seen and examined, states she feels a little better today. Still no BM or flatus, "but I heard gurgling". Review of Systems General: No Chills, No Night Sweats HEENT: Sinus Congestion, Sore Throat Pulmonary: No Dyspnea, No Cough Cardiovascular: No: Chest Pain, Palpitations Gastrointestinal: Abdominal Pain; No: Nausea, Vomiting Objective Exam General Appearance: No Apparent Distress, Obese HEENT: Moist Mucous Membranes Respiratory: Chest Non Tender, Lungs Clear, Normal Breath Sounds, No Accessory Muscle Use, No Respiratory Distress, Other (pain with deep inhalation ) Cardiovascular: Regular Rate, Rhythm, No Murmur Gastrointestinal: abnormal bowel sounds (hypoactive BS x 4 ), distended, tenderness (to light touch diffusely ) Extremity: Non Tender, Pedal Edema (1+ BL ) Neurologic/Psychiatric: Alert, Oriented x3 Assessment/Plan Assessment/Plan Assessment/Plan S/P Ex lap w/ lysis of adhesion for SBO POD 2 Abd pain -diffuse nausea- resolved h/o exploratory lap with colon resection (right colon) hyperglycemia- resolved Hypokalemia - mild and about the same Hypertensive urgency-improving constipation URI keep NG Tube in place with LIWS until pt has flatus (at least), Ice chips ok (but small amounts), cont IV fluids, pain control and anti-emetics as needed K+ supplementation Encourage IS and increase ambulation today to walks around unit continue to monitor BP and continue current HTN regimen stool softeners PRN continue use of chloroseptic spray Supervisory-Addendum Brief Verification & Attestation Participated in pt care: history, MDM, physical Personally performed: exam, history, MDM, supervision of care Care discussed with: Medical Student Procedures: n/a Verification and Attestation of Medical Student E/M Service A medical student performed and documented this service. I then reviewed and verified all information documented by the medical student and made modificatio ns to such information, when appropriate. I personally performed a physical exam, medical decision making and then discussed any differences between the notes and made revisions as necessary to create one note. Isiah Castillo , 07/08/22 , 11:50 MILTON CAPONE Jul 08, 2022 10:27 ISIAH CASTILLO DO Jul 08, 2022 11:50
--- NOTE | 2022-07-08 10:56 | Progress Note - Hospitalist ---
Subjective HPI/CC On Admission Date Seen by Provider: Jul 08, 2022 Patient is a 76-year-old female with past medical history of hypertension and partial Colectomy who presented to outside emergency department due to abdominal pain. She states her symptoms started about a week ago but got worse over the past couple of days. She complains of nausea and vomiting. She complains of pain throughout her entire abdomen but was worse in transfer in the lower abdomen. CT was done at outside facility which showed dilated bowel concerning for bowel obstruction. An NG tube was placed and there and she was transferred here. Subjective/Events-last exam Pt reports feeling about the same but pain slightly betetr with abd binder. Trying to go longer without pain medicine but rates her pain as severe. Informed her of importance of pain control so she could be functional and attempt getting out of bed. She is agreeable with that plan. Objective Exam Vital Signs Vital Signs Date Time Temp Pulse Resp B/P (MAP) Pulse Ox O2 Delivery O2 Flow Rate FiO2 07/08/22 08:00 Room Air 07/08/22 07:58 36.7 89 20 184/84 (117) 92 07/07/22 11:38 3.00 Capillary Refill : General Appearance: No Apparent Distress, WD/WN Respiratory: No Respiratory Distress Gastrointestinal: Abnormal Bowel Sounds (absent); No Guarding; Tenderness (diffuse, appropriate), Other (surgical wound dressing clean and dry) Neurologic/Psychiatric: Alert, Oriented x3 Results/Procedures Lab Laboratory Tests 07/08/22 05:10 Patient resulted labs reviewed. Imaging: Reviewed Imaging Report Assessment/Plan Assessment and Plan Assess & Plan/Chief Complaint SBO POD #2 ex lap [address] in place Fentanyl for pain, continue current regimen, encouraged used Zofran and phenergan, nausea controlled Surgery consulted NPO HTN BP improving with clonidine patch Continue IV prns for isolated BPs Telemetry Obesity, BMI 35 On phentermine at home per report DVT ppx: Lovenox Diagnosis/Problems Diagnosis/Problems (1) Essential (primary) hypertension (2) Obesity (3) Small bowel obstruction LAURIE SALCIDO MD Jul 08, 2022 10:56
[2022-07-08] MEDS: hydrALAZINE (APESOLINE) 20 MG/ML VIAL IV PRN (19:01)
[2022-07-08] MEDS: meTOprolol 5 MG/5 ML (LOPRESSOR) VIAL IV PRN ×2 (19:36→19:58)
[2022-07-09] VITALS (8 sets, daily range): BP systolic 138–222; BP diastolic 74–98
[2022-07-09] MEDS: hydrALAZINE (APESOLINE) 20 MG/ML VIAL IV PRN ×3 (01:55→20:49)
[2022-07-09] MEDS: NS IV 1000 ML 1,000 ML IV SCH (04:54)
[2022-07-09 05:31] LABS: HEMATOCRIT 37 % (35-52); HEMOGLOBIN 11.8 g/dL (11.5-16.0); MEAN CORPUSCULAR HEMOGLOBIN 29 pg (25-34); MEAN CORPUSCULAR HGB CONC 32 g/dL (32-36); MEAN CORPUSCULAR VOLUME 92 fL (80-99); MEAN PLATELET VOLUME 10.7 fL (9.0-12.2); PLATELET COUNT 171 10^3/uL (130-400); WHITE BLOOD COUNT 2.1 10^3/uL (4.3-11.0)
[2022-07-09 05:37] LABS: CALCIUM 10.1 MG/DL (8.5-10.1)
[2022-07-09 05:41] LABS: CREATININE SERUM 0.64 MG/DL (0.60-1.30)
[2022-07-09] MEDS: CATHETER FLUSH 10 ML SYR IV SCH ×3 (06:03→19:42)
[2022-07-09] MEDS: D5 1/2 NS W/KCL 20 MEQ/L 1,000 ML IV SCH ×2 (06:21→16:31)
[2022-07-09] MEDS ORDERED: NS IV 500 ML 500 ML IV PRN (07:30)
--- NOTE | 2022-07-09 07:42 | Progress Note - Surgery ---
MILTON CAPONE 07/09/22 0742: Subjective Date Seen by a Provider: Jul 09, 2022 Time Seen by a Provider: 07:00 Subjective/Events-last exam 76 F s/p ex lap w/ lysis of adhesions for a SBO POD 3 was able to ambulate more yesterday with walks around the unit. Reports improvement of her pain rated 5/10 diffusely across the abdomen that worsens with movement. Denies passing any flatus or BM since operation but states she could hear "her stomach making noise." States she has worsening sore throat and sinus congestion. Denies any n/v, CP, SOB, fever, or chills. Denies any urinary complaints. Still remains NPO. Became hypoglycemic last night requiring fluid change to D51/2NS. Review of Systems General: No Chills, No Night Sweats HEENT: Head Aches, Sinus Congestion Pulmonary: No Dyspnea, No Cough Cardiovascular: No: Chest Pain, Palpitations Gastrointestinal: Abdominal Pain; No: Nausea, Vomiting Genitourinary: No Dysuria, No Frequency Musculoskeletal: No: back pain, leg pain Neurological: No: Change in speech, Confusion Objective Exam Vital Signs Date Time Temp Pulse Resp B/P (MAP) Pulse Ox O2 Delivery O2 Flow Rate FiO2 07/09/22 07:25 36.9 94 20 216/96 (136) 92 Room Air 07/09/22 03:18 36.6 92 18 141/74 (96) 93 Room Air 07/09/22 01:54 192/84 (120) 07/09/22 01:00 86 07/08/22 23:13 36.4 92 18 184/85 (118) 91 Room Air 07/08/22 21:00 156/74 (101) 07/08/22 20:05 36.7 96 18 214/104 (140) 93 Room Air 07/08/22 19:50 Room Air 07/08/22 19:00 94 07/08/22 16:18 37.5 94 18 198/91 (126) 92 Room Air 07/08/22 12:49 91 07/08/22 11:31 37.4 93 20 181/83 (115) 92 Room Air 07/08/22 08:00 Room Air 07/08/22 07:58 36.7 89 20 184/84 (117) 92 Room Air I & O 07/09/22 07:00 Intake Total 1150 ml Output Total 2300 ml Balance -1150 ml Capillary Refill : General Appearance: No Apparent Distress, Obese HEENT: PERRL/EOMI, Moist Mucous Membranes Neck: Non Tender; No Lymphadenopathy (L), No Lymphadenopathy (R) Respiratory: Chest Non Tender, Lungs Clear, Normal Breath Sounds, No Accessory Muscle Use, No Respiratory Distress, Other (pain with deep inhalation ) Cardiovascular: Regular Rate, Rhythm, No Murmur Peripheral Pulses: 3+ Dorsalis Pedis (R), 3+ Left Dors-Pedis (L), 3+ Radial Pulses (R), 3+ Radial Pulses (L) Gastrointestinal: abnormal bowel sounds (hypoactive BS x 4, improved since yesterday ), distended, tenderness (to light touch diffusely ) Extremity: Non Tender, Pedal Edema (1+ BL ) Neurologic/Psychiatric: Alert, Oriented x3 Skin: Normal Color, Warm/Dry Results Lab Laboratory Tests 07/09/22 05:00: White Blood Count 2.1L, Red Blood Count 4.01, Hemoglobin 11.8, Hematocrit 37, Mean Corpuscular Volume 92, Mean Corpuscular Hemoglobin 29, Mean Corpuscular Hemoglobin Concent 32, Red Cell Distribution Width 13.5, Platelet Count 171, Me an Platelet Volume 10.7, Sodium Level 145, Potassium Level 3.0L, Chloride Level 113H, Carbon Dioxide Level 19L, Anion Gap 13, Blood Urea Nitrogen 16, Creatinine 0.64, Estimat Glomerular Filtration Rate 93, BUN/Creatinine Ratio 25, Glucose Level 69L, Calcium Level 10.1 Assessment/Plan Assessment/Plan Assessment/Plan S/P Ex lap w/ lysis of adhesion for SBO POD 2 Abd pain -diffuse nausea- resolved h/o exploratory lap with colon resection (right colon) hypoglycemia Hypokalemia - continues to worsen Hypertensive urgency-worsened again this morning with BP 210/96 constipation URI Leukopenia keep NG Tube in place with LIWS until pt has flatus (at least), Ice chips ok (but small amounts), cont IV fluids, pain control and anti-emetics as needed continue D5 1/2NS with K+ supplementation Encourage IS and increase ambulation today to walks around unit continue to monitor BP and continue current HTN regimen stool softeners PRN continue use of chloroseptic spray, add mucinex PRN CBC with diff to analyze WBCs ISIAH CASTILLO DO 07/09/22 1334: Subjective Time Seen by a Provider: 12:31 Subjective/Events-last exam Pt seen and examined, sitting up in chair. She states she is feeling better and "I thought I was gonna pass some gas, but then nothing". Pain is well controlled. Review of Systems General: No Chills, No Night Sweats HEENT: Head Aches, Sinus Congestion Pulmonary: No Dyspnea, No Cough Cardiovascular: No: Chest Pain, Palpitations Gastrointestinal: Abdominal Pain; No: Nausea, Vomiting Objective Exam General Appearance: No Apparent Distress, Obese HEENT: Moist Mucous Membranes Respiratory: Chest Non Tender, Lungs Clear, Normal Breath Sounds, No Accessory Muscle Use, No Respiratory Distress Cardiovascular: Regular Rate, Rhythm, No Murmur Gastrointestinal: abnormal bowel sounds (hypoactive BS x 4, improved since yes terday ), distended, tenderness (to light touch diffusely ), other (incision is c/d/i) Extremity: Non Tender, Pedal Edema (1+ BL ) Assessment/Plan Assessment/Plan Assessment/Plan S/P Ex lap w/ lysis of adhesion for SBO POD 2 Abd pain -diffuse nausea- resolved h/o exploratory lap with colon resection (right colon) hypoglycemia Hypokalemia - continues to worsen Hypertensive urgency-worsened again this morning with BP 210/96 constipation URI Leukopenia keep NG Tube in place with LIWS until pt has flatus (at least), Ice chips ok (but small amounts), cont IV fluids, pain control and anti-emetics as needed continue D5 1/2NS with K+ supplementation Encourage IS and increase ambulation today to walks around unit continue to monitor BP and continue current HTN regimen stool softeners PRN continue use of chloroseptic spray, add mucinex PRN CBC with diff to analyze WBCs Supervisory-Addendum Brief Verification & Attestation Participated in pt care: history, MDM, physical Personally performed: exam, history, MDM, supervision of care Care discussed with: Medical Student Procedures: n/a Verification and Attestation of Medical Student E/M Service A medical student performed and documented this service. I then reviewed and verified all information documented by the medical student and made modifications to such information, when appropriate. I personally performed a physical exam, medical decision making and then discussed any differences between the notes and made revisions as necessary to create one note. Isiah Castillo , 07/09/22 , 13:34 MILTON CAPONE Jul 09, 2022 07:42 ISIAH CASTILLO DO Jul 09, 2022 13:34
[2022-07-09] MEDS: KCL 20 MEQ TAB (K-DUR) PO SCH (08:22)
[2022-07-09] MEDS: POTASSIUM CL 10MEQ/50ML IVPB 50 ML IV SCH (08:22)
[2022-07-09] MEDS: POTASSIUM BICARB 20 MEQ (EFFER-K) TABLET PO SCH (08:22)
[2022-07-09] MEDS: MAGNESIUM 1 GM/100 ML IVPB 100 ML IV SCH (08:22)
[2022-07-09] MEDS: fentaNYL INJ 100 MCG/2 ML AMP IVP PRN ×3 (08:23→17:56)
--- NOTE | 2022-07-09 09:42 | Physical Therapy Daily Note ---
PT Daily Note-Current Subjective Patient agrees to PT. Pain Numeric Pain Scale: 7 Location: Medial, Lower Location Body Site: Abdomen Pain Description: Acute Section J - Health Conditions 1. Rarely or not at all 2. Occasionally 3. Frequently 4. Almost constantly 8. Unable to answer Pain Effect on Sleep: 2 Pain Interference with Therapy: 2 Pain Interference w/Day-to-Day: 2 Mental Status Patient Orientation: Normal For Age Attachments: NG Tube, Leigh Catheter, IV Transfers SCALE: Activities may be completed with or without assistive devices. 0-Hcapvlgipk-ummzgic completes the activity by him/herself with no assistance from a helper. 5-Set-up or Clean-up Assistance-helper sets up or cleans up; patient completes activity. [place]ois assists only prior to or following the activity. 4-Supervision or Touching Assistance-helper provides verbal cues and/or touching/steadying and/or contact guard assistance as patient completes activity. Assistance may be provided throughout the activity or intermittently. 3-Partial/Moderate Assistance-helper does LESS THAN HALF the effort. Dubois lifts, holds or supports trunk or limbs, but provides less than half the effort. 2-Substantial/Maximal Assistance-helper does MORE THAN HALF the effort. Dubois lifts or holds trunk or limbs and provides more than half the effort. 6-Kcrkyknir-itpsxs does ALL the effort. Patient does none of the effort to complete the activity. Or, the assistance of 2 or more helpers is required for the patient to complete the activity. If activity was not attempted, code reason: 7-Patient Refused. 9-Not Applicable-not attempted and the patient did not perform the activity before the current illness, exacerbation or injury. 10-Not Attempted due to Environmental Limitations-(lack of equipment, weather restraints, etc.). 88-Not Attempted due to Medical Conditions or Safety Concerns. Lying to Sitting/Side of Bed(Q: 4 Sit to Stand (QC): 4 Chair/Web-cx-Lukwj Xfer(QC): 4 Weight Bearing Right Lower Extremity: Right Full Weight Bearing Left Lower Extremity: Left Full Weight Bearing Gait Training Distance: 200' Walk 10 feet (QC): 4 Walk 50 ft with 2 Turns(QC): 4 Walk 150 ft (QC): 4 Gait Assistive Device: FWW very slow, steady gait sequence with multiple standing recovery periods due to fatigue Exercises Seated Therapy Exercises: Ankle pumps, Long arc quads Seated Reps: 15 Assessment Patient requires time to complete all functional tasks and is up in recliner with needs met. PT to increase activity as tolerated by patient. PT Automotive Hardware Engineer Goals Automotive Hardware Engineer Goals PT Automotive Hardware Engineer Goals Time Frame: Jul 21, 2022 Roll Left & Right (QC): 6 Sit to Lying (QC): 6 Lying-Sitting on Side/Bed(QC): 6 Sit to Stand (QC): 6 Chair/Hqs-qe-Ogvpi Xfer(QC): 6 Toilet Transfer (QC): 6 Car Transfer (QC): 6 Does the Patient Walk: Yes Walk 10 feet (QC): 6 Walk 50ft with 2 Turns (QC): 6 Walk 150 ft (QC): 6 1 Step (curb) (QC): 4 4 Steps (QC): 4 PT Plan Treatment/Plan Treatment Plan: Continue Plan of Care Treatment Plan: Bed Mobility, Education, Functional Activity Naomi, Functional Strength, Group Therapy, Gait, Safety, Therapeutic Exercise, Transfers Treatment Duration: Jul 27, 2022 Frequency: 6 times per week Estimated Hrs Per Day: .25 hour per day Patient and/or Family Agrees t: Yes Time Time In: 845 Time Out: 908 DATE: Jul 09, 2022 Total Billed Treatment Time: 23 Total Billed Treatment 1 visit FA x 2 23 min JAJA CHEN PT Jul 09, 2022 09:42
[2022-07-09] MEDS ORDERED: SALINE NASAL SPRAY (OCEAN) 45 ML BTL PRN (13:30)
--- NOTE | 2022-07-09 17:09 | Progress Note - Hospitalist ---
Subjective HPI/CC On Admission Date Seen by Provider: Jul 09, 2022 Time Seen by Provider: 10:30 Patient is a 76-year-old female with past medical history of hypertension and partial Colectomy who presented to outside emergency department due to abdominal pain. She states her symptoms started about a week ago but got worse over the past couple of days. She complains of nausea and vomiting. She complains of pain throughout her entire abdomen but was worse in transfer in the lower abdomen. CT was done at outside facility which showed dilated bowel concerning for bowel obstruction. An NG tube was placed and there and she was transferred here. Subjective/Events-last exam She is not passing gas. She has some abdominal discomfort. She denies nausea and vomiting. She says she wants a drink of water and coffee. Objective Exam Vital Signs Vital Signs Date Time Temp Pulse Resp B/P (MAP) Pulse Ox O2 Delivery O2 Flow Rate FiO2 07/09/22 15:05 35.8 93 20 138/92 (107) 94 Room Air 07/07/22 11:38 3.00 Capillary Refill : General Appearance: No Apparent Distress, Obese Respiratory: Lungs Clear, No Respiratory Distress Cardiovascular: Regular Rate, Rhythm, No Murmur Gastrointestinal: Soft, Abnormal Bowel Sounds, Distended Extremity: Normal Inspection, No Pedal Edema Neurologic/Psychiatric: Alert, No Motor/Sensory Deficits Skin: Normal Color, Warm/Dry Results/Procedures Lab Laboratory Tests 07/09/22 05:00 Patient resulted labs reviewed. Imaging: Reviewed Imaging Report Assessment/Plan Assessment and Plan Assess & Plan/Chief Complaint SBO Surgery following POD #[address] Pain regimen Antiemetics Remains NPO HTN BP improving Clonidine patch Obesity, BMI 35 On phentermine at home per report DVT ppx: Lovenox Diagnosis/Problems Diagnosis/Problems (1) Small bowel obstruction Status: Acute (2) Obstruction concurrent with and due to internal hernia of abdomen Status: Acute (3) Entrapment of intestine in abdominal adhesions Status: Acute (4) HTN (hypertension) Status: Acute (5) Obesity Status: Chronic NADINE HENDRICKSON MD Jul 09, 2022 17:09
[2022-07-09] MEDS: meTOprolol 5 MG/5 ML (LOPRESSOR) VIAL IV PRN (19:42)
[2022-07-10] VITALS (11 sets, daily range): BP systolic 169–196; BP diastolic 70–101
[2022-07-10] MEDS: meTOprolol 5 MG/5 ML (LOPRESSOR) VIAL IV PRN (01:23)
[2022-07-10] MEDS: D5 1/2 NS W/KCL 20 MEQ/L 1,000 ML IV SCH ×3 (02:56→22:45)
[2022-07-10] MEDS: hydrALAZINE (APESOLINE) 20 MG/ML VIAL IV PRN ×2 (03:04→08:39)
[2022-07-10 05:26] LABS: HEMATOCRIT 37 % (35-52); HEMOGLOBIN 12.2 g/dL (11.5-16.0); MEAN CORPUSCULAR HEMOGLOBIN 30 pg (25-34); MEAN CORPUSCULAR HGB CONC 33 g/dL (32-36); MEAN CORPUSCULAR VOLUME 90 fL (80-99); MEAN PLATELET VOLUME 10.4 fL (9.0-12.2); PLATELET COUNT 192 10^3/uL (130-400); WHITE BLOOD COUNT 2.6 10^3/uL (4.3-11.0)
[2022-07-10 05:32] LABS: POTASSIUM 3.1 MMOL/L (3.6-5.0)
[2022-07-10 05:33] LABS: CALCIUM 10.1 MG/DL (8.5-10.1)
[2022-07-10 05:38] LABS: CREATININE SERUM 0.62 MG/DL (0.60-1.30)
[2022-07-10 05:41] LABS: MAGNESIUM 1.7 MG/DL (1.6-2.4)
[2022-07-10] MEDS: POTASSIUM BICARB 20 MEQ (EFFER-K) TABLET PO SCH (05:43)
[2022-07-10] MEDS: MAGNESIUM 1 GM/100 ML IVPB 100 ML IV SCH ×5 (05:44→09:23)
[2022-07-10] MEDS: KCL 20 MEQ TAB (K-DUR) PO SCH (05:44)
[2022-07-10] MEDS: POTASSIUM CL 10MEQ/50ML IVPB 50 ML IV SCH ×9 (05:45→15:44)
[2022-07-10] MEDS: CATHETER FLUSH 10 ML SYR IV SCH ×3 (06:06→22:45)
[2022-07-10] MEDS ORDERED: CLONIDINE PATCH REMOVAL TP SCH (08:59)
[2022-07-10] MEDS ORDERED: cloNIDine 0.2 MG PATCH (CATAPRES TTS) TDSY TOP SCH (09:00)
[2022-07-10] MEDS: fentaNYL INJ 100 MCG/2 ML AMP IVP PRN ×3 (09:24→23:57)
--- NOTE | 2022-07-10 11:26 | Progress Note - Surgery ---
MILTON CAPONE 07/10/22 1126: Subjective Date Seen by a Provider: Jul 10, 2022 Time Seen by a Provider: 10:00 Subjective/Events-last exam 76 F s/p ex lab w/ lysis of adhesions secondary to SBO POD 4 reports continualy impriovement in her pain. Rated pain 4/10 today diffusely across the abdomen and exacerbated by movement and palpation. Pt reports passing minimal amount of flatus starting this morning, still not BM. Tolerated PT/OT yesterday and walks around the unit w/o issues. Continues to report a sore throat and congestion, negative for strep and COVID. Continues to use ICS. Denies any fever, chills, CP, SOB, n/v, or urinary complaints. Wound dressing was changed yesterday and pt was told it is healing well w/o signs of acute infection. Review of Systems General: No Chills, No Night Sweats HEENT: Sinus Congestion, Sore Throat Pulmonary: No Dyspnea, No Cough Cardiovascular: No: Chest Pain, Palpitations Gastrointestinal: Abdominal Pain; No: Nausea, Vomiting Genitourinary: No Dysuria, No Frequency Musculoskeletal: No: back pain, leg pain Neurological: No: Change in speech, Confusion Objective Exam Vital Signs Date Time Temp Pulse Resp B/P (MAP) Pulse Ox O2 Delivery O2 Flow Rate FiO2 07/10/22 11:04 36.6 91 18 196/91 (126) 93 Room Air 07/10/22 09:59 88 177/80 (112) 07/10/22 09:21 91 184/84 (117) 07/10/22 08:00 Room Air 07/10/22 07:37 89 07/10/22 07:24 36.0 90 18 196/92 (126) 93 Room Air 07/10/22 03:59 170/71 (104) 07/10/22 03:00 37.0 82 18 191/70 (110) 93 Room Air 07/10/22 01:11 90 184/78 (113) 07/10/22 01:00 88 07/10/22 00:13 36.9 93 18 188/78 (114) 93 Room Air 07/09/22 21:39 37.0 90 19 179/79 (112) 96 Room Air 07/09/22 20:48 222/92 (135) 07/09/22 19:45 Room Air 07/09/22 19:01 37.0 92 20 182/94 (123) 95 Room Air 07/09/22 19:00 92 07/09/22 15:05 35.8 93 20 138/92 (107) 94 Room Air 07/09/22 12:00 96 I & O 07/10/22 07:00 Intake Total 1000 ml Output Total 2100 ml Balance -1100 ml Capillary Refill : General Appearance: No Apparent Distress, Obese HEENT: PERRL/EOMI, Moist Mucous Membranes Neck: Non Tender; No Lymphadenopathy (L), No Lymphadenopathy (R) Respiratory: Chest Non Tender, Lungs Clear, Normal Breath Sounds, No Accessory Muscle Use, No Respiratory Distress Cardiovascular: Regular Rate, Rhythm, No Murmur Peripheral Pulses: 3+ Dorsalis Pedis (R), 3+ Left Dors-Pedis (L), 3+ Radial Pulses (R), 3+ Radial Pulses (L) Gastrointestinal: abnormal bowel sounds (increase un BS x4 compared to yesterday), distended (improved ), tenderness (to light touch diffusely ), other (incision is c/d/i) Extremity: No Calf Tenderness, Pedal Edema (1+ BL ) Neurologic/Psychiatric: Alert, Oriented x3 Skin: Normal Color, Warm/Dry Results Lab Laboratory Tests 07/09/22 12:18: Glucometer 103 07/09/22 17:38: Glucometer 101 07/10/22 00:02: Glucometer 122H 07/10/22 05:05: White Blood Count 2.6L, Red Blood Count 4.10, Hemoglobin 12.2, Hematocrit 37, Mean Corpuscular Volume 90, Mean Corpuscular Hemoglobin 30, Mean Corpuscular Hemoglobin Concent 33, Red Cell Distribution Width 13.4, Platelet Count 192, Mean Platelet Volume 10.4, Sodium Level 142, Potassium Level 3.1L, Chloride Level 112H, Carbon Dioxide Level 19L, Anion Gap 11, Blood Urea Nitrogen 11, Creatinine 0.62, Estimat Glomerular Filtration Rate 93, BUN/Creatinine Ratio 18, Glucose Level 136H, Calcium Level 10.1, Magnesium Level 1.7 07/10/22 05:15: Glucometer 131H 07/10/22 11:07: Glucometer 113H Microbiology 07/09/22 Throat Culture - Preliminary, Resulted Assessment/Plan Assessment/Plan Assessment/Plan S/P Ex lap w/ lysis of adhesion for SBO POD 4 Abd pain -diffuse nausea- resolved h/o exploratory lap with colon resection (right colon) hypoglycemia Hypokalemia - remains around 3.0 Hypertensive urgency-improved. BP 177/80 constipation URI Leukopenia- increased from 2.1 to 2.6 keep NG Tube in place with LIWS until pt has flatus (at least), Ice chips ok (but small amounts), cont IV fluids, pain control and anti-emetics as needed continue IVF with K+ supplementation continue to increase ambulation continue to monitor BP and continue current HTN regimen continue use of chloroseptic spray, CBC with diff to analyze WBCs ISIAH CASTILLO DO 07/10/22 1811: Subjective Time Seen by a Provider: 11:33 Subjective/Events-last exam Pt seen and examined, states she is passing gas and walking more. Pain is improved and denies N/V. Review of Systems General: No Chills, No Night Sweats Pulmonary: No Dyspnea, No Cough Cardiovascular: No: Chest Pain, Palpitations Gastrointestinal: Abdominal Pain; No: Nausea, Vomiting Objective Exam General Appearance: No Apparent Distress, Obese HEENT: Moist Mucous Membranes Neck: Lymphadenopathy (R) Respiratory: Lungs Clear, Normal Breath Sounds, No Accessory Muscle Use, No Respiratory Distress Cardiovascular: Regular Rate, Rhythm, No Murmur Gastrointestinal: soft, abnormal bowel sounds (increase in BS x4 compared to yesterday), distended (improved ), tenderness (to touch diffusely ), other (incision is c/d/i) Extremity: No Calf Tenderness, Pedal Edema (1+ BL ) Neurologic/Psychiatric: Alert Assessment/Plan Assessment/Plan Assessment/Plan Hypokalemia - continue replacing Potassium S/P Ex lap w/ lysis of adhesion for SBO POD 4 Abd pain -diffuse nausea- resolved h/o exploratory lap with colon resection (right colon) hypoglycemia Hypertensive urgency-improved. BP 177/80 constipation URI Leukopenia- increased from 2.1 to 2.6 keep NG Tube in place with LIWS until pt has flatus (at least), Ice chips ok (but small amounts), cont IV fluids, pain control and anti-emetics as needed continue IVF with K+ supplementation continue to increase ambulation continue to monitor BP and continue current HTN regimen continue use of chloroseptic spray, CBC with diff to analyze WBCs Supervisory-Addendum Brief Verification & Attestation Participated in pt care: history, MDM, physical Personally performed: exam, history, MDM, supervision of care Care discussed with: Medical Student Procedures: n/a Verification and Attestation of Medical Student E/M Service A medical student performed and documented this service. I then reviewed and verified all information documented by the medical student and made modifications to such information, when appropriate. I personally performed a physical exam, medical decision making and then discussed any differences between the notes and made revisions as necessary to create one note. Isiah Castillo , 07/10/22 , 18:11 MILTON CAPONE Jul 10, 2022 11:26 ISIAH CASTILLO DO Jul 10, 2022 18:11
--- NOTE | 2022-07-10 14:12 | Physical Therapy Daily Note ---
PT Daily Note-Current Subjective Patient agrees to PT. Pain Numeric Pain Scale: 5-Moderate Pain Location: Medial, Lower Location Body Site: Abdomen Pain Description: Acute Section J - Health Conditions 1. Rarely or not at all 2. Occasionally 3. Frequently 4. Almost constantly 8. Unable to answer Pain Effect on Sleep: 2 Pain Interference with Therapy: 2 Pain Interference w/Day-to-Day: 2 Mental Status Patient Orientation: Normal For Age Attachments: NG Tube, IV Transfers SCALE: Activities may be completed with or without assistive devices. 1-Qyzgpuodiv-qrqtajs completes the activity by him/herself with no assistance from a helper. 5-Set-up or Clean-up Assistance-helper sets up or cleans up; patient completes activity. Alden assists only prior to or following the activity. 4-Supervision or Touching Assistance-helper provides verbal cues and/or touching/steadying and/or contact guard assistance as patient completes activity. Assistance may be provided throughout the activity or intermittently. 3-Partial/Moderate Assistance-helper does LESS THAN HALF the effort. Alden l ifts, holds or supports trunk or limbs, but provides less than half the effort. 2-Substantial/Maximal Assistance-helper does MORE THAN HALF the effort. Alden lifts or holds trunk or limbs and provides more than half the effort. 3-Xragpbbqk-scfvvy does ALL the effort. Patient does none of the effort to complete the activity. Or, the assistance of 2 or more helpers is required for t he patient to complete the activity. If activity was not attempted, code reason: 7-Patient Refused. 9-Not Applicable-not attempted and the patient did not perform the activity before the current illness, exacerbation or injury. 10-Not Attempted due to Environmental Limitations-(lack of equipment, weather restraints, etc.). 88-Not Attempted due to Medical Conditions or Safety Concerns. Sit to Stand (QC): 4 Weight Bearing Right Lower Extremity: Right Full Weight Bearing Left Lower Extremity: Left Full Weight Bearing Gait Training Distance: 200' Walk 10 feet (QC): 4 Walk 50 ft with 2 Turns(QC): 4 Walk 150 ft (QC): 4 Gait Assistive Device: FWW slow, steady, functional gait sequence Assessment Patient tolerated treatment well and remains up in recliner. PT to continue to increase activity as tolerate by patient. PT Surface Water Technician Goals Mcfp Goals PT Surface Water Technician Goals Time Frame: Jul 21, 2022 Roll Left & Right (QC): 6 Sit to Lying (QC): 6 Lying-Sitting on Side/Bed(QC): 6 Sit to Stand (QC): 6 Chair/Leu-cl-Wjcbb Xfer(QC): 6 Toilet Transfer (QC): 6 Car Transfer (QC): 6 Does the Patient Walk: Yes Walk 10 feet (QC): 6 Walk 50ft with 2 Turns (QC): 6 Walk 150 ft (QC): 6 1 Step (curb) (QC): 4 4 Steps (QC): 4 PT Plan Treatment/Plan Treatment Plan: Continue Plan of Care Treatment Plan: Bed Mobility, Education, Functional Activity Naomi, Functional Strength, Group Therapy, Gait, Safety, Therapeutic Exercise, Transfers Treatment Duration: Jul 27, 2022 Frequency: 6 times per week Estimated Hrs Per Day: .25 hour per day Patient and/or Family Agrees t: Yes Time Time In: 1340 Time Out: 1353 DATE: Jul 10, 2022 Total Billed Treatment Time: 13 Total Billed Treatment 1 visit FA 13 min JAJA CHEN PT Jul 10, 2022 14:12
--- NOTE | 2022-07-10 15:04 | Progress Note - Hospitalist ---
Subjective HPI/CC On Admission Date Seen by Provider: Jul 10, 2022 Time Seen by Provider: 09:30 Patient is a 76-year-old female with past medical history of hypertension and partial Colectomy who presented to outside emergency department due to abdominal pain. She states her symptoms started about a week ago but got worse over the past couple of days. She complains of nausea and vomiting. She complains of pain throughout her entire abdomen but was worse in transfer in the lower abdomen. CT was done at outside facility which showed dilated bowel concerning for bowel obstruction. An NG tube was placed and there and she was transferred here. Subjective/Events-last exam She is feeling about the same. She has passed some gas. She has not had bowel movements. She wants coffee. She had some nausea. Objective Exam Vital Signs Vital Signs Date Time Temp Pulse Resp B/P (MAP) Pulse Ox O2 Delivery O2 Flow Rate FiO2 07/10/22 11:04 36.6 91 18 196/91 (126) 93 Room Air 07/07/22 11:38 3.00 Capillary Refill : General Appearance: No Apparent Distress, Obese Respiratory: Lungs Clear, No Respiratory Distress Cardiovascular: Regular Rate, Rhythm, No Murmur Gastrointestinal: Normal Bowel Sounds, Soft, Distended, Tenderness Extremity: Normal Inspection, No Pedal Edema Neurologic/Psychiatric: Alert, Normal Mood/Affect Skin: Normal Color, Warm/Dry Results/Procedures Lab Laboratory Tests 07/10/22 05:05 Patient resulted labs reviewed. Imaging: Reviewed Imaging Report Assessment/Plan Assessment and Plan Assess & Plan/Chief Complaint SBO Surgery following POD #[address] Pain regimen Antiemetics Remains NPO HTN BP remains elevated Increase clonidine patch Obesity, BMI 35 On phentermine at home per report DVT ppx: Lovenox Diagnosis/Problems Diagnosis/Problems (1) Small bowel obstruction Status: Acute (2) Obstruction concurrent with and due to internal hernia of abdomen Status: Acute (3) Entrapment of intestine in abdominal adhesions Status: Acute (4) HTN (hypertension) Status: Acute (5) Obesity Status: Chronic NADINE HENDRICKSON MD Jul 10, 2022 15:04
[2022-07-10] MEDS ORDERED: meTOprolol SUCCINATE 100 MG (TOPROL XL) TAB PO NR (15:30)
[2022-07-11 03:33] VITALS: BP 188/78
[2022-07-11] MEDS: meTOprolol 5 MG/5 ML (LOPRESSOR) VIAL IV PRN (04:35)
[2022-07-11 05:45] LABS: HEMATOCRIT 35 % (35-52); HEMOGLOBIN 11.6 g/dL (11.5-16.0); MEAN CORPUSCULAR HEMOGLOBIN 30 pg (25-34); MEAN CORPUSCULAR HGB CONC 33 g/dL (32-36); MEAN CORPUSCULAR VOLUME 91 fL (80-99); MEAN PLATELET VOLUME 10.7 fL (9.0-12.2); PLATELET COUNT 219 10^3/uL (130-400); WHITE BLOOD COUNT 3.2 10^3/uL (4.3-11.0)
[2022-07-11 05:56] LABS: POTASSIUM 3.7 MMOL/L (3.6-5.0)
[2022-07-11 05:58] LABS: CALCIUM 9.6 MG/DL (8.5-10.1)
[2022-07-11] MEDS: CATHETER FLUSH 10 ML SYR IV SCH ×3 (06:00→19:46)
[2022-07-11 06:02] LABS: CREATININE SERUM 0.57 MG/DL (0.60-1.30)
[2022-07-11 06:04] LABS: MAGNESIUM 1.9 MG/DL (1.6-2.4)
[2022-07-11] MEDS: MAGNESIUM 1 GM/100 ML IVPB 100 ML IV SCH ×3 (06:08→07:19)
[2022-07-11] MEDS: KCL 20 MEQ TAB (K-DUR) PO SCH (06:09)
[2022-07-11] MEDS: POTASSIUM CL 10MEQ/50ML IVPB 50 ML IV SCH ×3 (06:10→07:18)
[2022-07-11] MEDS: POTASSIUM BICARB 20 MEQ (EFFER-K) TABLET PO SCH (06:10)
[2022-07-11 07:48] VITALS: BP 174/79
[2022-07-11] MEDS: D5 1/2 NS W/KCL 20 MEQ/L 1,000 ML IV SCH ×2 (08:06→15:34)
[2022-07-11] MEDS: meTOprolol SUCCINATE 100 MG (TOPROL XL) TAB PO SCH (08:15)
[2022-07-11] MEDS: lisINopril 40 MG (PRINIVIL) TABLET PO SCH (08:15)
--- NOTE | 2022-07-11 08:44 | Progress Note - Surgery ---
KACY RITTER 07/11/22 0844: Subjective Date Seen by a Provider: Jul 11, 2022 Time Seen by a Provider: 08:39 Subjective/Events-last exam Rachel Miller is seen at bedside this AM. POD 5 ex lap with lysis of adhesions. She reports 5/10 pain in lower abdomen that is about the same as yesterday. Her midline incision is clean, dry, and intact. Passed flatus last night, none this morning. No BM so far. Tolerating liquids with no N/V. NG is in place but no suction since noon 07/10. Pt has ambulated w PT without issue. Review of Systems General: No Chills, No Night Sweats HEENT: No Head Aches, No Visual Changes Pulmonary: No Dyspnea, No Cough Cardiovascular: No: Chest Pain, Palpitations, Lt Headedness Gastrointestinal: Abdominal Pain; No: Nausea, Vomiting Genitourinary: No Dysuria, No Hematuria Neurological: No: Change in speech, Confusion Objective Exam Vital Signs Date Time Temp Pulse Resp B/P (MAP) Pulse Ox O2 Delivery O2 Flow Rate FiO2 07/11/22 07:48 36.1 73 20 174/79 (110) 94 Room Air 07/11/22 07:41 76 07/11/22 03:33 36.9 78 20 188/78 (114) 95 Room Air 07/11/22 01:00 80 07/10/22 23:50 36.8 79 20 169/79 (109) 95 Room Air 07/10/22 19:47 96 Room Air 07/10/22 19:14 37.0 79 20 179/101 (127) 96 Room Air 07/10/22 19:00 80 07/10/22 15:49 97 07/10/22 15:34 36.2 95 20 194/101 (132) 92 Room Air 07/10/22 11:04 36.6 91 18 196/91 (126) 93 Room Air 07/10/22 09:59 88 177/80 (112) 07/10/22 09:21 91 184/84 (117) I & O 07/11/22 07:00 Intake Total 1610 ml Output Total 625 ml Balance 985 ml Capillary Refill : General Appearance: No Apparent Distress, Obese HEENT: PERRL/EOMI, Moist Mucous Membranes Neck: Non Tender, Supple Respiratory: Chest Non Tender, Lungs Clear, No Accessory Muscle Use Cardiovascular: Regular Rate, Rhythm, No Murmur Peripheral Pulses: 3+ Dorsalis Pedis (R), 3+ Left Dors-Pedis (L), 3+ Radial Pulses (R), 3+ Radial Pulses (L) Gastrointestinal: soft, distended (improved ), tenderness (diffuse), other (incision is c/d/i) Extremity: No Calf Tenderness, Pedal Edema (1+ BL ) Neurologic/Psychiatric: Alert, Oriented x3 Skin: Normal Color, Warm/Dry, Other (incision is clean, dry, and intact) Lymphatic: No Adenopathy Results Lab Laboratory Tests 07/10/22 11:07: Glucometer 113H 07/10/22 17:24: Glucometer 84 07/10/22 20:11: Glucometer 122H 07/10/22 23:52: Glucometer 101 07/11/22 05:08: White Blood Count 3.2L, Red Blood Count 3.84, Hemoglobin 11.6, Hematocrit 35, Mean Corpuscular Volume 91, Mean Corpuscular Hemoglobin 30, Mean Corpuscular Hemoglobin Concent 33, Red Cell Distribution Width 13.5, Platelet Count 219, Mean Platelet Volume 10.7, Sodium Level 138, Potassium Level 3.7, Chloride Level 111H, Carbon Dioxide Level 19L, Anion Gap 8, Blood Urea Nitrogen 9, Creatinine 0.57L, Estimat Glomerular Filtration Rate 95, BUN/Creatinine Ratio 16, Glucose Level 109H, Calcium Level 9.6, Magnesium Level 1.9 Microbiology 07/09/22 Throat Culture - Preliminary, Resulted Assessment/Plan Assessment/Plan Assessment/Plan S/P Ex lap w/ lysis of adhesion for SBO POD 5 hypokalemia Abd pain nausea- resolved h/o exploratory lap with colon resection (right colon) hypoglycemia Hypertensive urgency-improved. Leukopenia NG tube in place w no suction, tolerating liquids without issue, advance diet when patient has BM Pain controlled continue IVF with K+ supplementation continue to increase ambulation continue to monitor BP and continue current HTN regimen, most recent BP 188/78 CBC with diff to analyze WBCs, leukopenia improving, up to 3.2 from 2.6 ISIAH VERMA DO 07/11/22 1421: Subjective Time Seen by a Provider: 12:24 Subjective/Events-last exam Pt seen and examined, she is passing gas and denies N/V. Tolerating clears. Review of Systems General: No Chills, No Night Sweats Pulmonary: No Dyspnea, No Cough Cardiovascular: No: Chest Pain, Palpitations Gastrointestinal: Abdominal Pain; No: Nausea, Vomiting Objective Exam General Appearance: No Apparent Distress, Obese HEENT: Moist Mucous Membranes Neck: Supple Respiratory: Lungs Clear, Normal Breath Sounds, No Accessory Muscle Use, No Respiratory Distress Cardiovascular: No Murmur Gastrointestinal: soft, distended (improved ), tenderness (diffuse), other ( incision is c/d/i) Extremity: No Calf Tenderness, Pedal Edema (1+ BL ) Assessment/Plan Assessment/Plan Assessment/Plan S/P Ex lap w/ lysis of adhesion for SBO POD 5 hypokalemia Abd pain nausea- resolved h/o exploratory lap with colon resection (right colon) hypoglycemia Hypertensive urgency-improved. Leukopenia NG tube in place w no suction, tolerating liquids without issue, advance diet when patient has BM Pain controlled continue IVF with K+ supplementation continue to increase ambulation continue to monitor BP and continue current HTN regimen, most recent BP 188/78 CBC with diff to analyze WBCs, leukopenia improving, up to 3.2 from 2.6 Supervisory-Addendum Brief Verification & Attestation Participated in pt care: history, MDM, physical Personally performed: exam, history, MDM, supervision of care Care discussed with: Medical Student Procedures: n/a Verification and Attestation of Medical Student E/M Service A medical student performed and documented this service. I then reviewed and verified all information documented by the medical student and made modifications to such information, when appropriate. I personally performed a physical exam, medical decision making and then discussed any differences between the notes and made revisions as necessary to create one note. Isiah Verma , 07/11/22 , 14:20 KACY RITTER Jul 11, 2022 08:44 ISIAH VERMA DO Jul 11, 2022 14:21
--- NOTE | 2022-07-11 09:42 | Physical Therapy Daily Note ---
PT Daily Note-Current Subjective Patient lying supine in bed upon TP arrival, agreeable to treatment. Patient rates pain at 5/10 currently in abdomen at rest. Pain Section J - Health Conditions 1. Rarely or not at all 2. Occasionally 3. Frequently 4. Almost constantly 8. Unable to answer Pain Effect on Sleep: 2 Pain Interference with Therapy: 2 Pain Interference w/Day-to-Day: 2 Mental Status Patient Orientation: Person, Place, Time, Situation Transfers SCALE: Activities may be completed with or without assistive devices. 1-Yyepjhqbzm-grtcssc completes the activity by him/herself with no assistance from a helper. 5-Set-up or Clean-up Assistance-helper sets up or cleans up; patient completes activity. [place] assists only prior to or following the activity. 4-Supervision or Touching Assistance-helper provides verbal cues and/or touching/steadying and/or contact guard assistance as patient completes activity. Assistance may be provided throughout the activity or intermittently. 3-Partial/Moderate Assistance-helper does LESS THAN HALF the effort. [place] lifts, holds or supports trunk or limbs, but provides less than half the effort. 2-Substantial/Maximal Assistance-helper does MORE THAN HALF the effort. [place] lifts or holds trunk or limbs and provides more than half the effort. 9-Rmhzvexis-pbfpir does ALL the effort. Patient does none of the effort to complete the activity. Or, the assistance of 2 or more helpers is required for the patient to complete the activity. If activity was not attempted, code reason: 7-Patient Refused. 9-Not Applicable-not attempted and the patient did not perform the activity before the current illness, exacerbation or injury. 10-Not Attempted due to Environmental Limitations-(lack of equipment, weather restraints, etc.). 88-Not Attempted due to Medical Conditions or Safety Concerns. Roll Left & Right (QC): 4 Sit to Lying (QC): 4 Lying to Sitting/Side of Bed(Q: 4 Sit to Stand (QC): 4 Chair/Umf-pt-Xjvsn Xfer(QC): 4 Toilet Transfer (QC): 4 Weight Bearing Right Lower Extremity: Right Full Weight Bearing Left Lower Extremity: Left Full Weight Bearing Gait Training Does the Patient Walk?: Yes Distance: 160 feet Walk 10 feet (QC): 4 Walk 50 ft with 2 Turns(QC): 4 Walk 150 ft (QC): 4 Gait Persons Needed: 1 Gait Assistive Device: FWW Assessment Current Status: Poor Progress Patient tolerated treatment fair, however fatigues quicker today. Patient performs all bed mobility and trasnfers with SBA. Patient ambulates 160 feet with FWW, with SBA. Patient reports at mid-point that her legs feel like they are going to give out so gait session was stopped. Patient able to ambulate back to chair. Patient in chair post treatment with all needs met, nursing notified, call light in hand. PT Farm Service Adviser Goals Nursing Home Goals PT Nursing Home Goals Time Frame: Jul 21, 2022 Roll Left & Right (QC): 6 Sit to Lying (QC): 6 Lying-Sitting on Side/Bed(QC): 6 Sit to Stand (QC): 6 Chair/Wcu-ge-Mhrpm Xfer(QC): 6 Toilet Transfer (QC): 6 Car Transfer (QC): 6 Does the Patient Walk: Yes Walk 10 feet (QC): 6 Walk 50ft with 2 Turns (QC): 6 Walk 150 ft (QC): 6 1 Step (curb) (QC): 4 4 Steps (QC): 4 PT Plan Treatment/Plan Treatment Plan: Continue Plan of Care Treatment Plan: Bed Mobility, Education, Functional Activity Naomi, Functional Strength, Group Therapy, Gait, Safety, Therapeutic Exercise, Transfers Treatment Duration: Jul 27, 2022 Frequency: 6 times per week Estimated Hrs Per Day: .25 hour per day Patient and/or Family Agrees t: Yes Safety Risks/Education Patient Education: Gait Training, Transfer Techniques Teaching Recipient: Patient Teaching Methods: Demonstration, Discussion Response to Teaching: Verbalize Understanding, Return Demonstration Time Time In: 848 Time Out: 902 DATE: Jul 11, 2022 Total Billed Treatment Time: 14 Total Billed Treatment Visit, Gait FANI JURADO PT Jul 11, 2022 09:42
[2022-07-11 11:19] VITALS: BP 142/65
--- NOTE | 2022-07-11 12:24 | Progress Note - Hospitalist ---
Subjective HPI/CC On Admission Date Seen by Provider: Jul 11, 2022 Time Seen by Provider: 09:30 Patient is a 76-year-old female with past medical history of hypertension and partial Colectomy who presented to outside emergency department due to abdominal pain. She states her symptoms started about a week ago but got worse over the past couple of days. She complains of nausea and vomiting. She complains of pain throughout her entire abdomen but was worse in transfer in the lower abdomen. CT was done at outside facility which showed dilated bowel concerning for bowel obstruction. An NG tube was placed and there and she was transferred here. Subjective/Events-last exam She is feeling a little better. Her pain is well controlled now. She continues to pass gas. She has not had a bowel movement yet. She has been ambulating. She has been tolerating clears well. She denies nausea and vomiting. Objective Exam Vital Signs Vital Signs Date Time Temp Pulse Resp B/P (MAP) Pulse Ox O2 Delivery O2 Flow Rate FiO2 07/11/22 11:19 36.3 75 20 142/65 (90) 94 Room Air 07/07/22 11:38 3.00 Capillary Refill : General Appearance: No Apparent Distress, Obese Respiratory: Lungs Clear, No Respiratory Distress Cardiovascular: Regular Rate, Rhythm, No Murmur Gastrointestinal: Normal Bowel Sounds, Soft Extremity: Normal Inspection, No Pedal Edema Neurologic/Psychiatric: Alert, Normal Mood/Affect Results/Procedures Lab Laboratory Tests 07/11/22 05:08 Patient resulted labs reviewed. Imaging: Reviewed Imaging Report Assessment/Plan Assessment and Plan Assess & Plan/Chief Complaint SBO Surgery following POD #[address], clamped Pain regimen Antiemetics Clear liquid diet Encouraged ambulation HTN BP remains elevated Clonidine patch Resumed Metoprolol Add Lisinopril Obesity, BMI 35 On phentermine at home per report DVT ppx: Lovenox Diagnosis/Problems Diagnosis/Problems (1) Small bowel obstruction Status: Acute (2) Obstruction concurrent with and due to internal hernia of abdomen Status: Acute (3) Entrapment of intestine in abdominal adhesions Status: Acute (4) HTN (hypertension) Status: Acute (5) Obesity Status: Chronic NADINE HENDRICKSON MD Jul 11, 2022 12:24
[2022-07-11] MEDS: fentaNYL INJ 100 MCG/2 ML AMP IVP PRN ×2 (13:44→22:51)
[2022-07-11 15:42] VITALS: BP 165/74
[2022-07-11] MEDS: ONDANSETRON 4 MG/2 ML (SDV) Z0FRAN IVP PRN ×2 (17:02→21:12)
[2022-07-11 19:46] VITALS: BP 161/81
[2022-07-11] MEDS: hydrALAZINE (APESOLINE) 20 MG/ML VIAL IV PRN (22:47)
[2022-07-11 23:08] VITALS: BP 184/83
[2022-07-12] VITALS (9 sets, daily range): BP systolic 155–195; BP diastolic 72–92
[2022-07-12] MEDS: ONDANSETRON 4 MG/2 ML (SDV) Z0FRAN IVP PRN ×4 (01:03→23:33)
[2022-07-12] MEDS: PROMETHAZINE INJ 25 MG/ML (PHENERGAN) AMP IVP PRN ×2 (01:41→11:42)
[2022-07-12] MEDS: hydrALAZINE (APESOLINE) 20 MG/ML VIAL IV PRN ×2 (03:39→23:33)
[2022-07-12] MEDS: fentaNYL INJ 100 MCG/2 ML AMP IVP PRN ×4 (03:41→23:33)
[2022-07-12] MEDS: CATHETER FLUSH 10 ML SYR IV SCH ×3 (03:55→19:04)
[2022-07-12 06:24] LABS: POTASSIUM 3.8 MMOL/L (3.6-5.0)
[2022-07-12 06:29] LABS: CREATININE SERUM 0.63 MG/DL (0.60-1.30)
[2022-07-12 06:31] LABS: MAGNESIUM 1.8 MG/DL (1.6-2.4)
[2022-07-12] MEDS: KCL 20 MEQ TAB (K-DUR) PO SCH (06:31)
[2022-07-12] MEDS: POTASSIUM BICARB 20 MEQ (EFFER-K) TABLET PO SCH (06:31)
[2022-07-12] MEDS: POTASSIUM CL 10MEQ/50ML IVPB 50 ML IV SCH ×3 (06:36→08:16)
[2022-07-12] MEDS: MAGNESIUM 1 GM/100 ML IVPB 100 ML IV SCH ×3 (06:37→10:22)
--- NOTE | 2022-07-12 07:01 | Progress Note - Surgery ---
KACY RITTER 07/12/22 0701: Subjective Date Seen by a Provider: Jul 12, 2022 Time Seen by a Provider: 06:55 Subjective/Events-last exam Rachel Miller was seen at bedside this morning. NG tube removed yesterday. Pt reports nausea overnight without vomit. She has been given zofran and phenergan with some alleviation of symptoms. RN reports she hallucinated after phenergan dose overnight around 0200. Still nauseous at time of my exam, slightly improved. Abdominal pain is 5/10 similar to yesterday. Incision is clean, dry, and intact. Still passing flatus but no BM. Voiding urine without issue. Nausea has caused her to decrease her fluid intake but is still taking sips of liquids. Review of Systems General: Chills; No Night Sweats HEENT: No Head Aches, No Sore Throat Pulmonary: No Dyspnea, No Cough Cardiovascular: No: Chest Pain, Palpitations Gastrointestinal: Nausea, Abdominal Pain; No: Vomiting Genitourinary: No Dysuria, No Hematuria Musculoskeletal: No: back pain Neurological: Weakness (generalized); No: Change in speech, Confusion Objective Exam Vital Signs Date Time Temp Pulse Resp B/P (MAP) Pulse Ox O2 Delivery O2 Flow Rate FiO2 07/12/22 04:31 82 170/75 (106) 07/12/22 03:37 36.1 79 18 195/88 (123) 95 Room Air 07/12/22 01:01 77 164/72 (102) 07/12/22 01:00 90 07/11/22 23:08 36.6 62 20 184/83 (116) 95 Room Air 07/11/22 19:52 Room Air 07/11/22 19:46 37.3 75 19 161/81 (107) 94 Room Air 07/11/22 19:00 75 07/11/22 15:42 37.6 72 18 165/74 (104) 96 Room Air 07/11/22 12:58 77 07/11/22 11:19 36.3 75 20 142/65 (90) 94 Room Air 07/11/22 08:00 Room Air 07/11/22 07:48 36.1 73 20 174/79 (110) 94 Room Air 07/11/22 07:41 76 I & O 07/12/22 07:00 Intake Total 755 ml Output Total 1250 ml Balance -495 ml Capillary Refill : General Appearance: No Apparent Distress, Obese HEENT: PERRL/EOMI, Moist Mucous Membranes Neck: Supple; No Limited Range of Motion Respiratory: Chest Non Tender, Lungs Clear, No Accessory Muscle Use Cardiovascular: Regular Rate, Rhythm, No Murmur, Normal Peripheral Pulses Gastrointestinal: soft, tenderness (diffuse, worse on right side today), other (incision is c/d/i) Extremity: No Calf Tenderness, Pedal Edema (1+ BL ) Neurologic/Psychiatric: Alert, Normal Mood/Affect Skin: Normal Color, Warm/Dry Lymphatic: No Adenopathy Results Lab Laboratory Tests 07/11/22 10:19: Glucometer 129H 07/11/22 18:29: Glucometer 116H 07/12/22 00:57: Glucometer 120H 07/12/22 05:25: Sodium Level 137, Potassium Level 3.8, Chloride Level 108H, Carbon Dioxide Level 20L, Anion Gap 9, Blood Urea Nitrogen 7, Creatinine 0.63, Estimat Glomerular Filtration Rate 93, BUN/Creatinine Ratio 11, Glucose Level 113H, Calcium Level 10.0, Magnesium Level 1.8 Microbiology 07/09/22 Throat Culture - Preliminary, Resulted Assessment/Plan Assessment/Plan Assessment/Plan S/P Ex lap w/ lysis of adhesion for SBO POD 6 hypokalemia Abd pain nausea h/o exploratory lap with colon resection (right colon) hypoglycemia Hypertensive urgency-improved. Leukopenia NG tube removed 07/11 Continue zofran, DC phenergan due to side effect Pain control continue IVF with K+ supplementation continue to increase ambulation, patient walked once yesterday with PT, needs more ambulation to facilitate bowel stimulation continue to monitor BP and continue current HTN regimen, most recent BP 170/75 CBC with diff to analyze WBCs, leukopenia improving, up to 3.2 from 2.6, no new CBC today ISIAH VERMA DO 07/12/22 1512: Subjective Time Seen by a Provider: 12:49 Subjective/Events-last exam Pt seen and examined, states she is still having some abdominal pain and more bloating today. +Flatus but no BM and only taking sips of liquids. Review of Systems General: Chills; No Night Sweats Pulmonary: No Dyspnea, No Cough Cardiovascular: No: Chest Pain, Palpitations Gastrointestinal: Nausea, Abdominal Pain; No: Vomiting Neurological: Weakness (generalized) Objective Exam General Appearance: Mild Distress, Obese HEENT: Moist Mucous Membranes Respiratory: Chest Non Tender, Lungs Clear, Normal Breath Sounds, No Accessory Muscle Use, No Respiratory Distress Cardiovascular: No Murmur Gastrointestinal: soft, distended, tenderness (diffuse, worse on right side today), other (incision is c/d/i) Extremity: No Calf Tenderness, Pedal Edema (1+ BL ) Neurologic/Psychiatric: Alert Assessment/Plan Assessment/Plan Assessment/Plan S/P Ex lap w/ lysis of adhesion for SBO POD 6 Hypokalemia - resolved today Abd pain nausea hypoglycemia HTN - on meds Leukopenia NG tube removed 07/11, Continue zofran, DC phenergan due to side effect Pain control, continue IVF. Pt encouraged to increase ambulation, patient walked once yesterday with PT, needs more ambulation to facilitate bowel stimulation continue to monitor BP and continue current HTN regimen, most recent BP 170/75 CBC with diff to analyze WBCs, leukopenia improving, up to 3.2 from 2.6, no new CBC today Will try a Dulcolax suppository Supervisory-Addendum Brief Verification & Attestation Participated in pt care: history, MDM, physical Personally performed: exam, history, MDM, supervision of care Care discussed with: Medical Student Procedures: n/a Verification and Attestation of Medical Student E/M Service A medical student performed and documented this service. I then reviewed and verified all information documented by the medical student and made modifications to such information, when appropriate. I personally performed a physical exam, medical decision making and then discussed any differences between the notes and made revisions as necessary to create one note. Isiah Verma , 07/12/22 , 15:12 KACY RITTER Jul 12, 2022 07:01 ISIAH VERMA DO Jul 12, 2022 15:12
[2022-07-12] MEDS: meTOprolol SUCCINATE 100 MG (TOPROL XL) TAB PO SCH (08:16)
[2022-07-12] MEDS: lisINopril 40 MG (PRINIVIL) TABLET PO SCH (08:17)
--- NOTE | 2022-07-12 11:30 | Physical Therapy Daily Note ---
PT Daily Note-Current Subjective Patient c/o nausea but agrees to PT. Pain Section J - Health Conditions 1. Rarely or not at all 2. Occasionally 3. Frequently 4. Almost constantly 8. Unable to answer Pain Effect on Sleep: 2 Pain Interference with Therapy: 2 Pain Interference w/Day-to-Day: 2 Mental Status Patient Orientation: Normal For Age Attachments: IV Transfers SCALE: Activities may be completed with or without assistive devices. 0-Bscgwvucdh-trurogp completes the activity by him/herself with no assistance from a helper. 5-Set-up or Clean-up Assistance-helper sets up or cleans up; patient completes activity. [place] assists only prior to or following the activity. 4-Supervision or Touching Assistance-helper provides verbal cues and/or touching/steadying and/or contact guard assistance as patient completes activity. Assistance may be provided throughout the activity or intermittently. 3-Partial/Moderate Assistance-helper does LESS THAN HALF the effort. [place] lifts, holds or supports trunk or limbs, but provides less than half the effort. 2-Substantial/Maximal Assistance-helper does MORE THAN HALF the effort. [place] lifts or holds trunk or limbs and provides more than half the effort. 9-Kznmgduna-wasoas does ALL the effort. Patient does none of the effort to complete the activity. Or, the assistance of 2 or more helpers is required for the patient to complete the activity. If activity was not attempted, code reason: 7-Patient Refused. 9-Not Applicable-not attempted and the patient did not perform the activity before the current illness, exacerbation or injury. 10-Not Attempted due to Environmental Limitations-(lack of equipment, weather restraints, etc.). 88-Not Attempted due to Medical Conditions or Safety Concerns. Sit to Lying (QC): 6 Lying to Sitting/Side of Bed(Q: 6 Sit to Stand (QC): 4 Weight Bearing Right Lower Extremity: Right Full Weight Bearing Left Lower Extremity: Left Full Weight Bearing Gait Training Does the Patient Walk?: Yes Distance: 180' Walk 10 feet (QC): 4 Walk 50 ft with 2 Turns(QC): 4 Walk 150 ft (QC): 4 Gait Assistive Device: FWW slow, steady gait sequence Exercises Supine Ex: Ankle pumps, Quad Set, Heel Slides Supine Reps: 10 Assessment Patient improving with treatment plan and returned to bed with needs met. Patient is SBA with ambulation. PT Insurance Verification Representative Goals Insurance Verification Representative Goals PT Insurance Verification Representative Goals Time Frame: Jul 21, 2022 Roll Left & Right (QC): 6 Sit to Lying (QC): 6 Lying-Sitting on Side/Bed(QC): 6 Sit to Stand (QC): 6 Chair/Weq-tn-Hplyu Xfer(QC): 6 Toilet Transfer (QC): 6 Car Transfer (QC): 6 Does the Patient Walk: Yes Walk 10 feet (QC): 6 Walk 50ft with 2 Turns (QC): 6 Walk 150 ft (QC): 6 1 Step (curb) (QC): 4 4 Steps (QC): 4 PT Plan Treatment/Plan Treatment Plan: Continue Plan of Care Treatment Plan: Bed Mobility, Education, Functional Activity Naomi, Functional Strength, Group Therapy, Gait, Safety, Therapeutic Exercise, Transfers Treatment Duration: Jul 27, 2022 Frequency: 6 times per week Estimated Hrs Per Day: .25 hour per day Patient and/or Family Agrees t: Yes Time Time In: 1026 Time Out: 1040 DATE: Jul 12, 2022 Total Billed Treatment Time: 14 Total Billed Treatment 1 visit FA 14 min JAJA CHEN PT Jul 12, 2022 11:30
[2022-07-12] MEDS: D5 1/2 NS W/KCL 20 MEQ/L 1,000 ML IV SCH ×2 (11:45→23:33)
--- NOTE | 2022-07-12 14:08 | Progress Note - Hospitalist ---
Subjective HPI/CC On Admission Date Seen by Provider: Jul 12, 2022 Time Seen by Provider: 08:00 Patient is a 76-year-old female with past medical history of hypertension and partial Colectomy who presented to outside emergency department due to abdominal pain. She states her symptoms started about a week ago but got worse over the past couple of days. She complains of nausea and vomiting. She complains of pain throughout her entire abdomen but was worse in transfer in the lower abdomen. CT was done at outside facility which showed dilated bowel concerning for bowel obstruction. An NG tube was placed and there and she was transferred here. Subjective/Events-last exam She has a difficult night. She was nauseous. She had a bad response to Phenergan. She is feeling better this morning. She is passing gas. She has not had a bowel movement yet. Objective Exam Vital Signs Vital Signs Date Time Temp Pulse Resp B/P (MAP) Pulse Ox O2 Delivery O2 Flow Rate FiO2 07/12/22 13:00 79 07/12/22 11:23 36.7 20 168/82 (110) 93 Room Air 07/07/22 11:38 3.00 Capillary Refill : General Appearance: No Apparent Distress, Obese Respiratory: Lungs Clear, No Respiratory Distress Cardiovascular: Regular Rate, Rhythm, No Murmur Gastrointestinal: Normal Bowel Sounds, Soft Extremity: Normal Inspection, No Pedal Edema Neurologic/Psychiatric: Alert, Normal Mood/Affect Results/Procedures Lab Laboratory Tests 07/12/22 05:25 Patient resulted labs reviewed. Imaging: Reviewed Imaging Report Assessment/Plan Assessment and Plan Assess & Plan/Chief Complaint SBO Surgery following POD #6 NGT removed Pain regimen Antiemetics Clear liquid diet Encourage ambulation HTN BP remains elevated Clonidine patch Continue Metoprolol and Lisinopril Obesity Clinically significant, no acute management needs DVT ppx: Lovenox Diagnosis/Problems Diagnosis/Problems (1) Small bowel obstruction Status: Acute (2) Obstruction concurrent with and due to internal hernia of abdomen Status: Acute (3) Entrapment of intestine in abdominal adhesions Status: Acute (4) HTN (hypertension) Status: Acute (5) Obesity Status: Chronic NADINE HENDRICKSON MD Jul 12, 2022 14:08
[2022-07-13 01:00] VITALS: BP 176/80
[2022-07-13] MEDS: hydrALAZINE (APESOLINE) 20 MG/ML VIAL IV PRN ×4 (03:47→20:03)
[2022-07-13 04:28] VITALS: BP 144/71
[2022-07-13 05:50] LABS: CALCIUM 9.9 MG/DL (8.5-10.1); CREATININE SERUM 0.67 MG/DL (0.60-1.30); MAGNESIUM 1.8 MG/DL (1.6-2.4); POTASSIUM 3.9 MMOL/L (3.6-5.0)
[2022-07-13] MEDS: POTASSIUM BICARB 20 MEQ (EFFER-K) TABLET PO SCH (05:55)
[2022-07-13] MEDS: CATHETER FLUSH 10 ML SYR IV SCH ×3 (05:55→20:03)
[2022-07-13] MEDS: KCL 20 MEQ TAB (K-DUR) PO SCH (05:55)
[2022-07-13] MEDS: MAGNESIUM 1 GM/100 ML IVPB 100 ML IV SCH ×3 (06:11→09:01)
[2022-07-13] MEDS: POTASSIUM CL 10MEQ/50ML IVPB 50 ML IV SCH ×3 (06:11→07:51)
[2022-07-13 07:27] VITALS: BP 193/91
[2022-07-13] MEDS: meTOprolol SUCCINATE 100 MG (TOPROL XL) TAB PO SCH (07:36)
[2022-07-13] MEDS: BISACODYL 10 MG SUPP (DULCOLAX) PR SCH (07:36)
[2022-07-13] MEDS: lisINopril 40 MG (PRINIVIL) TABLET PO SCH (07:36)
--- NOTE | 2022-07-13 07:57 | Progress Note - Surgery ---
KACY RITTER 07/13/22 0757: Subjective Date Seen by a Provider: Jul 13, 2022 Time Seen by a Provider: 07:49 Subjective/Events-last exam Rachel Miller was seen at bedside. She is POD7 s/p ex lap with lysis of adhesions for small bowel obstruction. She reports 7/10 diffuse abdominal pain worse than yesterday. States it feels uncomfortable rather than a sharp pain. Feels more distended today. States she feels "full of gas". Passing flatus but no BM. Reports nausea but not as severe as yesterday morning 07/12. Patient reports feeling better after belching which occurred several times during interview. Incision remains clean, dry, and intact. Voiding urine without issue. Tolerating sips of liquids. Ambulated halls once yesterday and a few times to the bathroom in her room. Review of Systems General: No Chills, No Night Sweats HEENT: No Head Aches, No Visual Changes Pulmonary: No Dyspnea, No Cough Cardiovascular: No: Chest Pain, Palpitations Gastrointestinal: Nausea, Abdominal Pain; No: Vomiting Genitourinary: No Dysuria, No Hematuria Musculoskeletal: No: leg pain Neurological: No: Change in speech, Confusion Objective Exam Vital Signs Date Time Temp Pulse Resp B/P (MAP) Pulse Ox O2 Delivery O2 Flow Rate FiO2 07/13/22 07:27 36.7 84 18 193/91 (125) 93 Room Air 07/13/22 07:00 86 07/13/22 04:28 36.8 87 16 144/71 (95) 94 Room Air 07/13/22 01:00 80 07/13/22 01:00 77 16 176/80 (112) 94 Room Air 07/12/22 23:21 37.0 77 16 183/86 (118) 95 Room Air 07/12/22 19:43 37.2 76 18 161/78 (105) 94 Room Air 07/12/22 19:18 Room Air 07/12/22 19:00 80 07/12/22 18:08 173/92 (119) 07/12/22 15:48 36.6 83 18 186/89 (121) 92 Room Air 07/12/22 13:00 79 07/12/22 11:23 36.7 81 20 168/82 (110) 93 Room Air 07/12/22 08:00 Room Air I & O 07/13/22 07:00 Intake Total 2910 ml Output Total 1300 ml Balance 1610 ml Capillary Refill : General Appearance: Mild Distress, Obese HEENT: PERRL/EOMI, Moist Mucous Membranes Neck: Supple; No Limited Range of Motion Respiratory: Chest Non Tender, Lungs Clear, No Accessory Muscle Use Cardiovascular: Regular Rate, Rhythm, No Murmur Gastrointestinal: soft, distended, tenderness (diffuse, worse in R and L upper quadrant), other (incision is c/d/i) Extremity: No Calf Tenderness, Pedal Edema (1+ BL ) Neurologic/Psychiatric: Alert, Normal Mood/Affect Skin: Normal Color, Warm/Dry Lymphatic: No Adenopathy Results Lab Laboratory Tests 07/12/22 11:35: Glucometer 136H 07/12/22 17:52: Glucometer 118H 07/13/22 05:22: Sodium Level 137, Potassium Level 3.9, Chloride Level 108H, Carbon Dioxide Level 19L, Anion Gap 10, Blood Urea Nitrogen 7, Creatinine 0.67, Estimat Glomerular Filtration Rate 92, BUN/Creatinine Ratio 10, Glucose Level 125H, Calcium Level 9.9, Magnesium Level 1.8 07/13/22 05:48: Glucometer 122H Microbiology 07/09/22 Throat Culture - Final, Complete No Beta Strep isolated Assessment/Plan Assessment/Plan Assessment/Plan S/P Ex lap w/ lysis of adhesion for SBO POD 7 Hypokalemia - resolved Abd pain nausea Post op ileus HTN - on multiple medications per medicine team Leukopenia NG tube removed 07/11, Continue zofran, DCed phenergan due to episode of confusion/hallucination Pain control, continue IVF. Consider switch from fentanyl to nonopioids like NSAIDs due to post op ileus Pt encouraged to increase ambulation, patient walked once yesterday around halls and a few times to bathroom, needs more ambulation to facilitate bowel stimulation. Multiple walks around [place] per day. continue to monitor BP and continue current HTN regimen, most recent BP 193//91 CBC with diff to analyze WBCs, leukopenia improving, up to 3.2 from 2.6, no new CBC since 07/11 Dulcolax suppository given this AM Needs lovenox for DVT prophylaxis ISIAH VERMA DO 07/13/22 1214: Subjective Time Seen by a Provider: 10:07 Subjective/Events-last exam Pt seen and examined, states she is doing better than earlier. She passed some gas and doesn't feel bloated anymore. She also states she "burped and that helped". Denies BM Review of Systems General: No Chills, No Night Sweats Pulmonary: No Dyspnea, No Cough Cardiovascular: No: Chest Pain, Palpitations Gastrointestinal: Nausea, Abdominal Pain; No: Vomiting Objective Exam General Appearance: Mild Distress, Obese HEENT: PERRL/EOMI, Moist Mucous Membranes Respiratory: Lungs Clear, Normal Breath Sounds, No Accessory Muscle Use, No Respiratory Distress Cardiovascular: Regular Rate, Rhythm, No Murmur Gastrointestinal: soft, distended (mild), tenderness (diffuse, worse in R and L upper quadrant), other (incision is c/d/i) Extremity: No Calf Tenderness, Pedal Edema (1+ BL ) Neurologic/Psychiatric: Alert, Normal Mood/Affect Assessment/Plan Assessment/Plan Assessment/Plan S/P Ex lap w/ lysis of adhesion for SBO POD 7 Hypokalemia - resolved Abd pain nausea Post op ileus HTN - on multiple medications per medicine team Leukopenia NG tube removed 07/11, Continue zofran, DCed phenergan due to episode of confusion/hallucination Pain control, continue IVF. Consider switch from fentanyl to nonopioids like NSAIDs due to post op ileus Pt encouraged to increase ambulation, patient walked once yesterday around halls and a few times to bathroom, needs more ambulation to facilitate bowel stimulation. Multiple walks around [place] per day. continue to monitor BP and continue current HTN regimen, most recent BP 193//91 CBC with diff to analyze WBCs, leukopenia improving, up to 3.2 from 2.6, no new CBC since 07/11 Dulcolax suppository given this AM Wrote for lovenox for DVT prophylaxis Supervisory-Addendum Brief Verification & Attestation Participated in pt care: history, MDM, physical Personally performed: exam, history, MDM, supervision of care Care discussed with: Medical Student Procedures: n/a Verification and Attestation of Medical Student E/M Service A medical student performed and documented this service. I then reviewed and verified all information documented by the medical student and made modifications to such information, when appropriate. I personally performed a physical exam, medical decision making and then discussed any differences between the notes and made revisions as necessary to create one note. Isiah Verma , 07/13/22 , 12:14 KACY RITTER Jul 13, 2022 07:57 ISIAH VERMA DO Jul 13, 2022 12:14
--- NOTE | 2022-07-13 10:57 | Physical Therapy Progress Note ---
Therapy Progress Note Patient reports she ambulates with nursing and is getting a laxative on this date. Declined PT. Will attempt tomorrow a.m.. 1 ref JAJA CHEN PT Jul 13, 2022 10:57
[2022-07-13 12:00] VITALS: BP 169/77
--- NOTE | 2022-07-13 12:40 | Progress Note - Hospitalist ---
Subjective HPI/CC On Admission Date Seen by Provider: Jul 13, 2022 Time Seen by Provider: 10:20 Patient is a 76-year-old female with past medical history of hypertension and partial Colectomy who presented to outside emergency department due to abdominal pain. She states her symptoms started about a week ago but got worse over the past couple of days. She complains of nausea and vomiting. She complains of pain throughout her entire abdomen but was worse in transfer in the lower abdomen. CT was done at outside facility which showed dilated bowel concerning for bowel obstruction. An NG tube was placed and there and she was transferred here. Subjective/Events-last exam She had some nausea. She has passed some gas since then and feels better. Her pain has also improved. She walked once yesterday. She was encouraged to ambulate more. Objective Exam Vital Signs Vital Signs Date Time Temp Pulse Resp B/P (MAP) Pulse Ox O2 Delivery O2 Flow Rate FiO2 07/13/22 08:45 Room Air 07/13/22 07:27 36.7 84 18 193/91 (125) 93 07/07/22 11:38 3.00 Capillary Refill : General Appearance: No Apparent Distress, Obese Respiratory: Lungs Clear, No Respiratory Distress Cardiovascular: Regular Rate, Rhythm, No Murmur Gastrointestinal: Normal Bowel Sounds, Soft Extremity: Normal Inspection, No Pedal Edema Neurologic/Psychiatric: Alert, Normal Mood/Affect Skin: Normal Color, Warm/Dry Results/Procedures Lab Laboratory Tests 07/13/22 05:22 Patient resulted labs reviewed. Imaging: Reviewed Imaging Report Assessment/Plan Assessment and Plan Assess & Plan/Chief Complaint SBO Surgery following POD #7 Pain regimen Antiemetics Clear liquid diet Encourage ambulation HTN BP improving Clonidine patch Continue Metoprolol and Lisinopril Obesity Clinically significant, no acute management needs DVT ppx: Lovenox Diagnosis/Problems Diagnosis/Problems (1) Small bowel obstruction Status: Acute (2) Obstruction concurrent with and due to internal hernia of abdomen Status: Acute (3) Entrapment of intestine in abdominal adhesions Status: Acute (4) HTN (hypertension) Status: Acute (5) Obesity Status: Chronic NADINE HENDRICKSON MD Jul 13, 2022 12:40
[2022-07-13] MEDS: ENOXAPARIN 40 MG/0.4 ML (LOVENOX) SYR SC SCH (15:36)
[2022-07-13 16:24] VITALS: BP 182/86
[2022-07-13 19:20] VITALS: BP 183/98
[2022-07-14 00:16] VITALS: BP 163/75
[2022-07-14] MEDS: fentaNYL INJ 100 MCG/2 ML AMP IVP PRN (02:58)
[2022-07-14 03:41] VITALS: BP 169/80
[2022-07-14 06:18] LABS: BASOPHILS % (AUTO) 1 % (0-10); EOSINOPHILS # (AUTO) 0.2 10^3/uL (0.0-0.3); EOSINOPHILS % (AUTO) 2 % (0-10); HEMATOCRIT 36 % (35-52); LYMPHOCYTES # (AUTO) 1.6 10^3/uL (1.0-4.0); LYMPHOCYTES % (AUTO) 22 % (12-44); MEAN CORPUSCULAR HEMOGLOBIN 30 pg (25-34); MEAN CORPUSCULAR HGB CONC 34 g/dL (32-36); MEAN CORPUSCULAR VOLUME 90 fL (80-99); MEAN PLATELET VOLUME 10.3 fL (9.0-12.2); MONOCYTES # (AUTO) 0.7 10^3/uL (0.0-1.0); MONOCYTES % (AUTO) 10 % (0-12); NEUTROPHILS # (AUTO) 4.7 10^3/uL (1.8-7.8); NEUTROPHILS % (AUTO) 64 % (42-75); PLATELET COUNT 329 10^3/uL (130-400); WHITE BLOOD COUNT 7.4 10^3/uL (4.3-11.0)
[2022-07-14 06:30] LABS: CALCIUM 9.9 MG/DL (8.5-10.1); CREATININE SERUM 0.66 MG/DL (0.60-1.30); MAGNESIUM 1.8 MG/DL (1.6-2.4)
[2022-07-14] MEDS: KCL 20 MEQ TAB (K-DUR) PO SCH (06:32)
[2022-07-14] MEDS: POTASSIUM CL 10MEQ/50ML IVPB 50 ML IV SCH (06:32)
[2022-07-14] MEDS: POTASSIUM BICARB 20 MEQ (EFFER-K) TABLET PO SCH (06:32)
[2022-07-14] MEDS: MAGNESIUM 1 GM/100 ML IVPB 100 ML IV SCH ×3 (06:33→06:43)
[2022-07-14] MEDS: CATHETER FLUSH 10 ML SYR IV SCH ×2 (06:42→14:07)
[2022-07-14 07:33] VITALS: BP 187/94
[2022-07-14] MEDS: lisINopril 40 MG (PRINIVIL) TABLET PO SCH (08:38)
[2022-07-14] MEDS: hydrALAZINE (APESOLINE) 20 MG/ML VIAL IV PRN ×2 (08:38→13:08)
[2022-07-14] MEDS: meTOprolol SUCCINATE 100 MG (TOPROL XL) TAB PO SCH (08:38)
[2022-07-14] MEDS: BISACODYL 10 MG SUPP (DULCOLAX) PR SCH (08:48)
--- NOTE | 2022-07-14 08:49 | Physical Therapy Daily Note ---
PT Daily Note-Current Subjective Patient reports she is feeling much better today and agrees to PT. Pain Section J - Health Conditions 1. Rarely or not at all 2. Occasionally 3. Frequently 4. Almost constantly 8. Unable to answer Pain Effect on Sleep: 2 Pain Interference with Therapy: 2 Pain Interference w/Day-to-Day: 2 Mental Status Patient Orientation: Normal For Age Attachments: IV Transfers SCALE: Activities may be completed with or without assistive devices. 9-Xnucsrvkkc-wqjzfap completes the activity by him/herself with no assistance from a helper. 5-Set-up or Clean-up Assistance-helper sets up or cleans up; patient completes activity. [place] assists only prior to or following the activity. 4-Supervision or Touching Assistance-helper provides verbal cues and/or touching/steadying and/or contact guard assistance as patient completes activity. Assistance may be provided throughout the activity or intermittently. 3-Partial/Moderate Assistance-helper does LESS THAN HALF the effort. [place] lifts, holds or supports trunk or limbs, but provides less than half the effort. 2-Substantial/Maximal Assistance-helper does MORE THAN HALF the effort. [place] lifts or holds trunk or limbs and provides more than half the effort. 2-Sdgokbiwn-wdqfig does ALL the effort. Patient does none of the effort to c omplete the activity. Or, the assistance of 2 or more helpers is required for the patient to complete the activity. If activity was not attempted, code reason: 7-Patient Refused. 9-Not Applicable-not attempted and the patient did not perform the activity before the current illness, exacerbation or injury. 10-Not Attempted due to Environmental Limitations-(lack of equipment, weather restraints, etc.). 88-Not Attempted due to Medical Conditions or Safety Concerns. Sit to Stand (QC): 5 Weight Bearing Right Lower Extremity: Right Full Weight Bearing Left Lower Extremity: Left Full Weight Bearing Gait Training Distance: 150' Walk 10 feet (QC): 5 Walk 50 ft with 2 Turns(QC): 5 Walk 150 ft (QC): 5 Gait Assistive Device: FWW Assessment Patient remains up in recliner with needs met. Patient tolerated ambulation well PT Lithographic Photographer Goals Lithographic Photographer Goals PT Half-Way Goals Time Frame: Jul 21, 2022 Roll Left & Right (QC): 6 Sit to Lying (QC): 6 Lying-Sitting on Side/Bed(QC): 6 Sit to Stand (QC): 6 Chair/Dgo-ge-Aimxn Xfer(QC): 6 Toilet Transfer (QC): 6 Car Transfer (QC): 6 Does the Patient Walk: Yes Walk 10 feet (QC): 6 Walk 50ft with 2 Turns (QC): 6 Walk 150 ft (QC): 6 1 Step (curb) (QC): 4 4 Steps (QC): 4 PT Plan Treatment/Plan Treatment Plan: Continue Plan of Care Treatment Plan: Bed Mobility, Education, Functional Activity Naomi, Functional Strength, Group Therapy, Gait, Safety, Therapeutic Exercise, Transfers Treatment Duration: Jul 27, 2022 Frequency: 6 times per week Estimated Hrs Per Day: .25 hour per day Patient and/or Family Agrees t: Yes Time Time In: 818 Time Out: 830 DATE: Jul 14, 2022 Total Billed Treatment Time: 12 Total Billed Treatment 1 visit FA 12 min JAJA CHEN PT Jul 14, 2022 08:49
[2022-07-14] MEDS ORDERED: TORSEMIDE 20 MG (DEMADEX) TAB PO SCH (09:00)
[2022-07-14 11:35] VITALS: BP 191/89
--- NOTE | 2022-07-14 12:17 | Progress Note ---
Subjective Date Seen by a Provider: Jul 14, 2022 Time Seen by a Provider: 11:00 Subjective/Events-last exam Patient seen with Dr. Lee. Patient reports doing ok. Tolerating diet with no nausea or vomiting. Denies any abdominal pain. Having BMs. Objective Exam Vital Signs Date Time Temp Pulse Resp B/P (MAP) Pulse Ox O2 Delivery O2 Flow Rate FiO2 07/14/22 11:35 36.8 76 20 191/89 (123) 94 Room Air 07/14/22 08:00 94 Room Air 07/14/22 07:33 37.1 79 18 187/94 (125) 94 Room Air 07/14/22 07:00 84 07/14/22 03:41 36.1 73 18 169/80 (109) 93 Room Air 07/14/22 01:00 75 07/14/22 00:16 37.4 77 18 163/75 (104) 94 Room Air 07/13/22 20:53 Room Air 07/13/22 19:20 37.8 75 18 183/98 (126) 95 Room Air 07/13/22 19:20 77 07/13/22 16:24 36.9 76 20 182/86 (118) 94 Room Air 07/13/22 13:00 76 I & O 07/14/22 07:00 Intake Total 2100 ml Output Total 700 ml Balance 1400 ml Capillary Refill : General Appearance: No Apparent Distress, WD/WN Neck: Normal Inspection, Supple Respiratory: No Accessory Muscle Use, No Respiratory Distress Gastrointestinal: normal bowel sounds, non tender, soft, other (Midline incision C/D/I with no signs of infection) Neurologic/Psychiatric: Alert, Oriented x3 Skin: Normal Color, Warm/Dry Results Lab Laboratory Tests 07/14/22 05:49: White Blood Count 7.4, Red Blood Count 3.98, Hemoglobin 12.0, Hematocrit 36, Mean Corpuscular Volume 90, Mean Corpuscular Hemoglobin 30, Mean Corpuscular Hemoglobin Concent 34, Red Cell Distribution Width 13.3, Platelet Count 329, Mean Platelet Volume 10.3, Immature Granulocyte % (Auto) 2, Neutrophils (%) (Auto) 64, Lymphocytes (%) (Auto) 22, Monocytes (%) (Auto) 10, Eosinophils (%) (Auto) 2, Basophils (%) (Auto) 1, Neutrophils # (Auto) 4.7, Lymphocytes # (Auto) 1.6, Monocytes # (Auto) 0.7, Eosinophils # (Auto) 0.2, Basophils # (Auto) 0.0, Immature Granulocyte # (Auto) 0.1, Sodium Level 135, Potassium Level 4.0, Chloride Level 106, Carbon Dioxide Level 19L, Anion Gap 10, Blood Urea Nitrogen 7, Creatinine 0.66, Estimat Glomerular Filtration Rate 92, BUN/Creatinine Ratio 11, Glucose Level 88, Calcium Level 9.9, Magnesium Level 1.8 Microbiology 07/09/22 Throat Culture - Final, Complete No Beta Strep isolated Assessment/Plan Assessment/Plan Assess & Plan/Chief Complaint A 76 year old female who is S/P Ex lap w/ lysis of adhesion for SBO POD 8 Tolerating diet Denies any issues Will advance to regular diet Ok to go home from surgical standpoint MARCO CORTES APRN Jul 14, 2022 12:17
[2022-07-14] MEDS ORDERED: IBUP-1780 PO (12:32)
--- NOTE | 2022-07-14 12:33 | Discharge Inst-Surgical ---
D/C Lap Instructions-KIDO Reconcile Patient Problems Problems Reviewed?: Yes New, Converted, or Re-Newed RX: RX on Chart Follow Up Appt with Dr. Hart in 1 week Activity as tolerated No driving while on pain medications Incentive Spirometry use every 2 hours while awake Regular Diet Symptoms to Report: Fever over 101 degree F, Nausea/Vomiting Infection Signs and Symptoms to report: Increased redness, Foul odor of wound, Increased drainage Bathing instructions: May shower Operative Area Clean/Dry; Keep incision clean/dry If any problems/questions: Contact your physician or go to Emergency Room MARCO CORTES APRN Jul 14, 2022 12:33
[2022-07-14] MEDS ORDERED: LISI40TA9 PO (13:04)
[2022-07-14] MEDS ORDERED: HYDR25TA4 PO (13:04)
[2022-07-14] MEDS ORDERED: CLON1PAT34 TOP (13:05)
[2022-07-14] MEDS: ENOXAPARIN 40 MG/0.4 ML (LOVENOX) SYR SC SCH (13:16)
[2022-07-14 16:16] VITALS: BP 191/89
--- NOTE | 2022-07-14 19:27 | Discharge Summary ---
Discharge Summary Hospital Course Was the Problem List Reviewed?: Yes Problems/Dx: (1) Small bowel obstruction Status: Acute (2) Obstruction concurrent with and due to internal hernia of abdomen Status: Acute (3) Entrapment of intestine in abdominal adhesions Status: Acute (4) HTN (hypertension) Status: Acute (5) Obesity Status: Chronic Hospital Course Date of Admission: Jul 05, 2022 at 11:16 Admission Diagnosis : Small bowel obstruction Family Physician/Provider: Date of Discharge: 07/14/22 Discharge Diagnosis: Small bowel obstruction due to adhesions and internal hernia, uncontrolled hypertension Hospital Course: Rachel Miller is a 76 year old male who was admitted with small bowel obstruction. Surgery was consulted and assisted with her care. She required exploratory laparotomy. They performed lysis of adhesions and release of internal hernia. Her symptoms slowly improved. She required several days of supportive care with NG tube, antiemetics, and IV fluids. Her ileus eventually resolved. Her course was complicated by uncontrolled hypertension. She was continued on Toprol. She was started on Lisinopril, HCTZ, and Clonidine. She should follow up with her PCP in about a week. She may need adjustment of her BP medications. She should follow up with Dr. Hart in about a week. She was discharged home in stable condition. Labs and Pending Lab Test: Laboratory Tests 07/14/22 05:49: White Blood Count 7.4, Red Blood Count 3.98, Hemoglobin 12.0, Hematocrit 36, Mean Corpuscular Volume 90, Mean Corpuscular Hemoglobin 30, Mean Corpuscular Hemoglobin Concent 34, Red Cell Distribution Width 13.3, Platelet Count 329, Mean Platelet Volume 10.3, Immature Granulocyte % (Auto) 2, Neutrophils (%) (Auto) 64, Lymphocytes (%) (Auto) 22, Monocytes (%) (Auto) 10, Eosinophils (%) (Auto) 2, Basophils (%) (Auto) 1, Neutrophils # (Auto) 4.7, Lymphocytes # (Auto) 1.6, Monocytes # (Auto) 0.7, Eosinophils # (Auto) 0.2, Basophils # (Auto) 0.0, Immature Granulocyte # (Auto) 0.1, Sodium Level 135, Potassium Level 4.0, Chloride Level 106, Carbon Dioxide Level 19L, Anion Gap 10, Blood Urea Nitrogen 7, Creatinine 0.66, Estimat Glomerular Filtration Rate 92, BUN/Creatinine Ratio 11, Glucose Level 88, Calcium Level 9.9, Magnesium Level 1.8 Microbiology 07/09/22 Throat Culture - Final, Complete No Beta Strep isolated Home Meds Active Clonidine TTS 2 Patch (Clonidine) 0.2 Mg/24 Hour Patch.tdwk 0.2 Mg TOP TU@0900 28 Days Hydrochlorothiazide 25 Mg Tablet 25 Mg PO DAILY 30 Days Lisinopril 40 Mg Tablet 40 Mg PO DAILY 30 Days Ibuprofen 800 Mg Tablet 800 Mg PO Q8H PRN Reported Coq-10 (Ubidecarenone) 100 Mg Capsule 100 Mg PO DAILY Vitamin C (Ascorbic Acid) 500 Mg Capsule 500 Mg PO DAILY Acetyl g-Iwzdqtumu-Omiirq Acid (Acetylcarnitine HCl/Alip Acid) 400 Mg-200 Mg Capsule 1 Each PO DAILY Bilberry 100 Mg Capsule 100 Mg PO DAILY Lutein 20 Mg Tablet 20 Mg PO DAILY Zinc (Zinc Sulfate) 50 Mg Zinc (220 Mg) Tablet 50 Mg PO DAILY Chromium (Chromium Amino Acid Chelate) 400 Mcg Tablet 400 Mcg PO DAILY Vitamin D3 (Cholecalciferol (Vitamin D3)) 50 Mcg (2000 Unit) Tablet 50 Mcg PO DAILY Systane 0.3-0.4% Eye Drops (Propylene Glycol/Peg 400) 0.3 %-0.4 % Drops 2 Drops OU UD PRN Cyclobenzaprine HCl 10 Mg Tablet 10 Mg PO TID PRN Tizanidine HCl 4 Mg Tablet 4 Mg PO BID PRN Phentermine HCl 37.5 Mg Tablet 37.5 Mg PO DAILY Metoprolol Succinate 100 Mg Tab.er.24h 100 Mg PO DAILY Assessment/Pt Instructions Take medications as prescribed. You are being started on several new medications for blood pressure. Follow up with your PCP in about a week. Return with worsening abdominal pain, nausea/vomiting, lightheadedness/dizziness, or if you feel like you are getting worse. Discharge Planning: >30 minutes discharge planning Discharge Instructions Discharge Diet: Low Sodium Diet Activity as Tolerated: Yes Discharge Physical Examination Vital Signs Vital Signs Date Time Temp Pulse Resp B/P (MAP) Pulse Ox O2 Delivery O2 Flow Rate FiO2 07/14/22 16:16 36.8 72 20 191/89 94 Room Air General Appearance: No Apparent Distress, Obese Respiratory: Lungs Clear, No Respiratory Distress Cardiovascular: Regular Rate, Rhythm, No Murmur Gastrointestinal: Normal Bowel Sounds, Soft Extremity: Normal Inspection, No Pedal Edema Skin: Normal Color, Warm/Dry Neurologic/Psychiatric: Alert, Normal Mood/Affect Allergies: Coded Allergies: No Known Drug Allergies (Unverified , 07/05/22) Discharge Summary Date of Admission Jul 05, 2022 at 11:16 Date of Discharge Jul 14, 2022 at 16:16 Discharge Date: Jul 14, 2022 Discharge Time: 16:16 Admission Diagnosis SBO Consults/Procedures Consulations Surgery Procedures Exploratory laparotomy, lysis of adhesions, release of internal hernia Discharge Diagnosis SBO HTN Obesity (1) Small bowel obstruction Status: Acute (2) Obstruction concurrent with and due to internal hernia of abdomen Status: Acute (3) Entrapment of intestine in abdominal adhesions Status: Acute (4) HTN (hypertension) Status: Acute (5) Obesity Status: Chronic NADINE HENDRICKSON MD Jul 14, 2022 19:25
== END 2022-07-14 16:16 | disposition home or self-care (01) | DRG 336 ==
LOC: 4TH 11:16
PROVIDERS: ADMIT Family Medicine; ATTEND Internal Medicine
PROC: 0WJG0ZZ Inspection of Peritoneal Cavity, Open Approach (ICD-10-PCS; 2022-07-06)
PROC: 0DN80ZZ Release Small Intestine, Open Approach (ICD-10-PCS; principal; 2022-07-06 16:10)
DX: K46.0 Unspecified abdominal hernia with obstruction, without gangrene (principal); K56.50 Intestinal adhesions [bands], unspecified as to partial versus complete obstruction; R44.3 Hallucinations, unspecified; K56.7 Ileus, unspecified; E66.9 Obesity, unspecified; Z90.49 Acquired absence of other specified parts of digestive tract; Z68.35 Body mass index [BMI] 35.0-35.9, adult; E87.6 Hypokalemia; D72.819 Decreased white blood cell count, unspecified; I16.0 Hypertensive urgency; K59.00 Constipation, unspecified; J06.9 Acute upper respiratory infection, unspecified; E16.2 Hypoglycemia, unspecified; Z20.822 Contact with and (suspected) exposure to COVID-19
CPT/HCPCS: 36415; 74250; 80048; 82947; 83735; 85025; 85027; 87430; 87636